=== PATIENT | male | born 1985 | race Two or more races ===

== ENCOUNTER 2018-03-20 22:21 | Inpatient (IN) | payer MEDICAID, OTHER ==
[~2018-03-20] VITALS: Ht 182.9 cm; Wt 88.5 kg
[2018-03-20 22:25] VITALS: BP 136/80
--- NOTE | 2018-03-20 22:40 | Emergency Room Report ---
History of Present Illness General Chief Complaint: Abdominal Pain Source: Patient Present Illness HPI Patient is a 32-year-old male who presented after increased right upper abdominal pain. Patient reports having constant pain for several days. Patient reports having the recently had increased abdominal distention as well as pain. Patient had prior history of similar type symptoms in the past. Prevacid associated with increased vomiting. Patient states that he had onset after eating pizza and had persistent pain since then. He reports having some normal bowel movements. He denies any episodes of diarrhea. He reports having increased dark urine. Allergies: Coded Allergies: No Known Allergies (Unverified , 03/20/18) Patient History Past Medical History: see triage record Reviewed Nursing Documentation: PMH: Agreed; PSxH: Agreed Nursing Documentation-PMH Past Medical History: No Stated History Review of Systems All Other Systems: negative except mentioned in HPI Physical Exam Vital Signs Date Time Temp Pulse Resp B/P (MAP) Pulse Ox O2 Delivery O2 Flow Rate FiO2 03/20/18 22:23 98.2 91 22 136/80 98 Room Air Sp02 EP Interpretation: reviewed, normal General Appearance: normal inspection, well appearing, no apparent distress, alert, GCS 15 Head: atraumatic ENT: normal ENT inspection, hearing grossly normal, normal voice Neck: normal inspection, full range of motion, supple, no bony tend Respiratory: normal inspection, lungs clear, normal breath sounds, no respiratory distress, no retraction, no wheezing Cardiovascular #1: regular rate, rhythm, no edema Gastrointestinal: normal inspection, normal bowel sounds, soft, no guarding, no hernia, tenderness - right upper abdoment Genitourinary: no CVA tenderness Musculoskeletal: normal inspection, back normal, normal range of motion Neurologic: normal inspection, alert, oriented x3, responsive, surgical aides teacher III-XII nml as tested, speech normal Psychiatric: normal inspection, judgement/insight normal, mood/affect normal Skin: normal inspection, normal color, no rash Medical Decision Making Diagnostic Impression: Primary Impression: Abdominal pain Additional Impression: Acute gallstone pancreatitis ER Course Patient presented for abdominal pain. Differential diagnoses included ischemic bowel, appendicitis, perforated viscus, abdominal aortic aneurysm, inferior myocardial infarction, viral gastroenteritis Because of complexity of patient's case laboratory testing and imaging studies were ordered. The patient reports having prior history of gallstones. Abdominal ultrasound was ordered. Patient was noted to have fairly severe pain localized to the right upper quadrant. The laboratory testing showed evidence of pancreatitis as well as a gallbladder inflammation consistent with gallstone pancreatitis.Patient was given IV fluids. The patient given IV pain medications. The patient was advised that he likely would require inpatient management due to gallstone pancreatitis. The patient was noted to have markedly elevated bilirubin levels as well as markedly elevated lipase on laboratory testing. The patient is also noted have elevated white blood count. The gallbladder ultrasound showed the gallbladder stones with some evidence of pancreatic inflammation. The patient likely has choledocholithiasis given his elevated bilirubin levels. The patient does not appear to be suffering from altered mental status. Patient was given IV antibiotics. Dr. Sotero Melgar was contacted for inpatient management due to panel physician. Dr. David was contacted for GI consult.Dr. Zepeda was contacted for surgical consult. Labs Test 03/20/18 22:41 White Blood Count 14.0 K/UL (4.8-10.8) Red Blood Count 6.02 M/UL (4.70-6.10) Hemoglobin 18.0 G/DL (14.2-18.0) Hematocrit 51.3 % (42.0-52.0) Mean Corpuscular Volume 85 FL (80-99) Mean Corpuscular Hemoglobin 30.0 PG (27.0-31.0) Mean Corpuscular Hemoglobin Concent 35.2 G/DL (32.0-36.0) Red Cell Distribution Width 10.5 % (11.6-14.8) Platelet Count 245 K/UL (150-450) Mean Platelet Volume 7.5 FL (6.5-10.1) Neutrophils (%) (Auto) % (45.0-75.0) Lymphocytes (%) (Auto) % (20.0-45.0) Monocytes (%) (Auto) % (1.0-10.0) Eosinophils (%) (Auto) % (0.0-3.0) Basophils (%) (Auto) % (0.0-2.0) Prothrombin Time 11.4 SEC (9.30-11.50) Prothromb Time International Ratio 1.1 (0.9-1.1) Activated Partial Thromboplast Time 27 SEC (23-33) Urine Color Yellow Urine Appearance Clear Urine pH 5 (4.5-8.0) Urine Specific [place] 1.015 (1.005-1.035) Urine Protein 2+ (NEGATIVE) Urine Glucose (UA) Negative (NEGATIVE) Urine Ketones Negative (NEGATIVE) Urine Blood 2+ (NEGATIVE) Urine Nitrite Negative (NEGATIVE) Urine Bilirubin 2+ (NEGATIVE) Urine Ictotest Positive (NEGATIVE) Urine Urobilinogen 4 MG/DL (0.0-1.0) Urine Leukocyte Esterase Negative (NEGATIVE) Urine RBC 2-4 /HPF (0 - 0) Urine WBC 0 /HPF (0 - 0) Urine Squamous Epithelial Cells Few /LPF (NONE/OCC) Urine Bacteria None /HPF (NONE) Sodium Level 139 MMOL/L (136-145) Potassium Level 3.7 MMOL/L (3.5-5.1) Chloride Level 100 MMOL/L (98-107) Carbon Dioxide Level 28 MMOL/L (21-32) Anion Gap 12 mmol/L (5-15) Blood Urea Nitrogen 13 mg/dL (7-18) Creatinine 1.3 MG/DL (0.55-1.30) Estimat Glomerular Filtration Rate > 60 mL/min (>60) Glucose Level 171 MG/DL (74-106) Calcium Level 9.8 MG/DL (8.5-10.1) Total Bilirubin 9.6 MG/DL (0.2-1.0) Direct Bilirubin 7.0 MG/DL (0.0-0.3) Aspartate Amino Transf (AST/SGOT) 448 U/L (15-37) Alanine Aminotransferase (ALT/SGPT) 821 U/L (12-78) Alkaline Phosphatase 152 U/L (46-116) Troponin I 0.000 ng/mL (0.000-0.056) Total Protein 8.9 G/DL (6.4-8.2) Albumin 4.6 G/DL (3.4-5.0) Globulin 4.3 g/dL Albumin/Globulin Ratio 1.1 (1.0-2.7) Lipase > 2000 U/L (73-393) Last Vital Signs Date Time Temp Pulse Resp B/P (MAP) Pulse Ox O2 Delivery O2 Flow Rate FiO2 03/20/18 22:23 98.2 91 22 136/80 98 Room Air Status: unchanged Disposition: ADMITTED INPATIENT Condition: Stable Scripts No Active Prescriptions or Reported Meds Referrals: [facility] (PCP) Alban Martinez MD Mar 20, 2018 22:40
[2018-03-20] MEDS ORDERED: Morphine Sulfate 4mg/ml Inj (IV/IM USE ONLY) IVP ONE (22:45)
[2018-03-20] MEDS ORDERED: Sodium Chloride 500ML 500 ML IV ONE (22:45)
[2018-03-20 23:02] LABS: HEMATOCRIT 51.3 % (42.0-52.0); MEAN CORPUSCULAR VOLUME 85 FL (80-99); PLATELET COUNT 245 K/UL (150-450); RED BLOOD COUNT 6.02 M/UL (4.70-6.10); RED CELL DISTRIBUTION WIDTH 10.5 % (11.6-14.8)
[2018-03-20 23:10] LABS: ANION GAP 12 mmol/L (5-15); BLOOD UREA NITROGEN 13 mg/dL (7-18); CALCIUM 9.8 MG/DL (8.5-10.1); CARBON DIOXIDE 28 MMOL/L (21-32); CHLORIDE 100 MMOL/L (98-107); CREATININE 1.3 MG/DL (0.55-1.30); POTASSIUM 3.7 MMOL/L (3.5-5.1); SODIUM 139 MMOL/L (136-145)
[2018-03-20 23:13] LABS: APPEARANCE,URINE CLEAR; BILIRUBIN, URINE 2+ (NEGATIVE); GLUCOSE, URINE (UA) NEGATIVE (NEGATIVE); KETONES,URINE NEGATIVE (NEGATIVE); LEUKOCYTE ESTERASE ,URINE NEGATIVE (NEGATIVE); NITRITE,URINE NEGATIVE (NEGATIVE); PH,URINE 5 (4.5-8.0); PROTEIN,URINE 2+ (NEGATIVE); UROBILINOGEN,URINE 4 MG/DL (0.0-1.0)
[2018-03-20 23:15] LABS: COLOR,URINE YELLOW
[2018-03-20 23:19] LABS: INR 1.1 (0.9-1.1)
[2018-03-20 23:20] LABS: ALANINE AMINOTRANSFERASE 821 U/L (12-78); ALBUMIN 4.6 G/DL (3.4-5.0); ALBUMIN/GLOBULIN RATIO 1.1 (1.0-2.7); ALKALINE PHOSPHATASE 152 U/L (46-116); ASPARTATE AMINO TRANSFERASE 448 U/L (15-37); BILIRUBIN,TOTAL 9.6 MG/DL (0.2-1.0)
[2018-03-21] MEDS ORDERED: Morphine Sulfate 4mg/ml Inj (IV/IM USE ONLY) IVP ONE ×2 (00:30→01:30)
[2018-03-21] MEDS ORDERED: Ampicillin/Sulbactam Sod 3 GM in NS 110 ML IVPB ONE (01:00)
[2018-03-21 04:00] VITALS: BP 115/69
[2018-03-21] MEDS ORDERED: D5NS 1,000 ML IV SCH (04:45)
[2018-03-21] MEDS: Morphine Sulfate 4mg/ml Inj (IV/IM USE ONLY) IVP PRN ×5 (04:58→21:30)
[2018-03-21] MEDS: Piperacillin/Tazobactam 3.375 GM in D5W 110 ML IVPB SCH ×3 (05:45→21:19)
[2018-03-21 08:00] VITALS: BP 123/66
[2018-03-21] MEDS: Heparin 5000 units/ml inj SUBQ SCH ×2 (09:00→21:21)
--- NOTE | 2018-03-21 09:16 | Diagnostic Imaging Report ---
Indication:Abdominal pain. Elevated bilirubin Technique: Grayscale and duplex Doppler imaging of the abdomen performed. Comparison: None Findings: The gallbladder is visualized. There are multiple gallstones. There is one image of the CBD which appears normal in caliber measuring 4 mm. However study is very limited. Spleen is seen only partially and appears normal in size. There is no obvious free fluid. There is no obvious hydronephrosis. Aorta and pancreas are not seen. IMPRESSION: Very limited evaluation. Cholelithiasis demonstrated. Consider a different imaging modalities such as CT or MRCP for further evaluation of hyperbilirubinemia as clinically warranted. Findings discussed with Dr. Sotero Melgar.
[2018-03-21] MEDS: Pantoprazole Inj IVP SCH (09:52)
[2018-03-21 09:54] LABS: HEMATOCRIT 51.1 % (42.0-52.0); HEMOGLOBIN 17.8 G/DL (14.2-18.0); MEAN CORPUSCULAR VOLUME 86 FL (80-99); PLATELET COUNT 222 K/UL (150-450); RED BLOOD COUNT 5.93 M/UL (4.70-6.10); RED CELL DISTRIBUTION WIDTH 10.7 % (11.6-14.8); WHITE BLOOD COUNT 10.2 K/UL (4.8-10.8)
[2018-03-21 10:25] LABS: ALANINE AMINOTRANSFERASE 704 U/L (12-78); ALBUMIN 3.8 G/DL (3.4-5.0); ALBUMIN/GLOBULIN RATIO 1.1 (1.0-2.7); ALKALINE PHOSPHATASE 142 U/L (46-116); ANION GAP 7 mmol/L (5-15); ASPARTATE AMINO TRANSFERASE 327 U/L (15-37); BILIRUBIN,TOTAL 7.7 MG/DL (0.2-1.0); BLOOD UREA NITROGEN 10 mg/dL (7-18); CARBON DIOXIDE 30 MMOL/L (21-32); CHLORIDE 104 MMOL/L (98-107); CREATININE 1.2 MG/DL (0.55-1.30); POTASSIUM 3.9 MMOL/L (3.5-5.1); SODIUM 141 MMOL/L (136-145)
[2018-03-21 10:26] LABS: BILIRUBIN,DIRECT 5.8 MG/DL (0.0-0.3)
[2018-03-21 12:00] VITALS: BP 127/64
--- NOTE | 2018-03-21 12:13 | GI Initial Consult Note ---
History of Present Illness General Date patient seen: Mar 21, 2018 Time patient seen: 12:06 Reason for Hospitalization: Abdominal Pain Referring physician: LU MCKEON Reason for Consultation: GALLSTONE PANCREATITIS Present Illness HPI Patient is a 32-year-old male who presented after increased right upper abdominal pain. Patient reports having constant pain for several days. Patient reports having the recently had increased abdominal distention as well as pain. Patient had prior history of similar type symptoms in the past. Prevacid associated with increased vomiting. Patient states that he had onset after eating pizza and had persistent pain since then. He reports having some normal bowel movements. He denies any episodes of diarrhea. He reports having increased dark urine. GI consulted for gallstone pancreatitis. Pt seen, presents with RUQ abdominal pain. Labs reviewed noted with elevated LFTs and lipase levels suggestive of gallstone pancreatitis. Initially presented with leukocytosis, now normal. MRCP performed, pending results. Patient has no known medical history. No history of endoscopy / colonoscopy. Home Meds No Active Prescriptions or Reported Meds Med list reviewed/reconciled: Yes Allergies: Coded Allergies: No Known Allergies (Unverified , 03/20/18) Patient History History Provided By: Patient, Medical Record [facility] Narrative Past Medical History: No Stated History Social History: Denies: smoking, alcohol use, drug use, other Review of Systems All Other Systems: negative except mentioned in HPI Physical Exam Vital Signs Date Time Temp Pulse Resp B/P (MAP) Pulse Ox O2 Delivery O2 Flow Rate FiO2 03/20/18 22:23 98.2 91 22 136/80 98 Room Air Sp02 EP Interpretation: reviewed, normal Labs Laboratory Tests Test 03/20/18 22:41 03/21/18 09:25 White Blood Count 14.0 K/UL (4.8-10.8) H 10.2 K/UL (4.8-10.8) Red Blood Count 6.02 M/UL (4.70-6.10) 5.93 M/UL (4.70-6.10) Hemoglobin 18.0 G/DL (14.2-18.0) 17.8 G/DL (14.2-18.0) Hematocrit 51.3 % (42.0-52.0) 51.1 % (42.0-52.0) Mean Corpuscular Volume 85 FL (80-99) 86 FL (80-99) Mean Corpuscular Hemoglobin 30.0 PG (27.0-31.0) 30.0 PG (27.0-31.0) Mean Corpuscular Hemoglobin Concent 35.2 G/DL (32.0-36.0) 34.8 G/DL (32.0-36.0) Red Cell Distribution Width 10.5 % (11.6-14.8) L 10.7 % (11.6-14.8) L Platelet Count 245 K/UL (150-450) 222 K/UL (150-450) Mean Platelet Volume 7.5 FL (6.5-10.1) 7.5 FL (6.5-10.1) Neutrophils (%) (Auto) % (45.0-75.0) % (45.0-75.0) Lymphocytes (%) (Auto) % (20.0-45.0) % (20.0-45.0) Monocytes (%) (Auto) % (1.0-10.0) % (1.0-10.0) Eosinophils (%) (Auto) % (0.0-3.0) % (0.0-3.0) Basophils (%) (Auto) % (0.0-2.0) % (0.0-2.0) Prothrombin Time 11.4 SEC (9.30-11.50) Prothromb Time International Ratio 1.1 (0.9-1.1) Activated Partial Thromboplast Time 27 SEC (23-33) Urine Color Yellow Urine Appearance Clear Urine pH 5 (4.5-8.0) Urine Specific [place] 1.015 (1.005-1.035) Urine Protein 2+ (NEGATIVE) H Urine Glucose (UA) Negative (NEGATIVE) Urine Ketones Negative (NEGATIVE) Urine Blood 2+ (NEGATIVE) H Urine Nitrite Negative (NEGATIVE) Urine Bilirubin 2+ (NEGATIVE) H Urine Ictotest Positive (NEGATIVE) Urine Urobilinogen 4 MG/DL (0.0-1.0) H Urine Leukocyte Esterase Negative (NEGATIVE) Urine RBC 2-4 /HPF (0 - 0) H Urine WBC 0 /HPF (0 - 0) Urine Squamous Epithelial Cells Few /LPF (NONE/OCC) Urine Bacteria None /HPF (NONE) Sodium Level 139 MMOL/L (136-145) 141 MMOL/L (136-145) Potassium Level 3.7 MMOL/L (3.5-5.1) 3.9 MMOL/L (3.5-5.1) Chloride Level 100 MMOL/L (98-107) 104 MMOL/L (98-107) Carbon Dioxide Level 28 MMOL/L (21-32) 30 MMOL/L (21-32) Anion Gap 12 mmol/L (5-15) 7 mmol/L (5-15) Blood Urea Nitrogen 13 mg/dL (7-18) 10 mg/dL (7-18) Creatinine 1.3 MG/DL (0.55-1.30) 1.2 MG/DL (0.55-1.30) Estimat Glomerular Filtration Rate > 60 mL/min (>60) > 60 mL/min (>60) Glucose Level 171 MG/DL (74-106) H 129 MG/DL (74-106) H Calcium Level 9.8 MG/DL (8.5-10.1) 9.0 MG/DL (8.5-10.1) Total Bilirubin 9.6 MG/DL (0.2-1.0) H 7.7 MG/DL (0.2-1.0) H Direct Bilirubin 7.0 MG/DL (0.0-0.3) H 5.8 MG/DL (0.0-0.3) H Aspartate Amino Transf (AST/SGOT) 448 U/L (15-37) H 327 U/L (15-37) H Alanine Aminotransferase (ALT/SGPT) 821 U/L (12-78) H 704 U/L (12-78) H Alkaline Phosphatase 152 U/L (46-116) H 142 U/L (46-116) H Troponin I 0.000 ng/mL (0.000-0.056) Total Protein 8.9 G/DL (6.4-8.2) H 7.4 G/DL (6.4-8.2) Albumin 4.6 G/DL (3.4-5.0) 3.8 G/DL (3.4-5.0) Globulin 4.3 g/dL 3.6 g/dL Albumin/Globulin Ratio 1.1 (1.0-2.7) 1.1 (1.0-2.7) Lipase > 2000 U/L (73-393) H Differential Total Cells Counted 100 Neutrophils % (Manual) 91 % (45-75) H Lymphocytes % (Manual) 4 % (20-45) L Monocytes % (Manual) 5 % (1-10) Eosinophils % (Manual) 0 % (0-3) Basophils % (Manual) 0 % (0-2) Band Neutrophils 0 % (0-8) Platelet Estimate Adequate Platelet Morphology Normal Red Blood Cell Morphology Normal General Appearance: well appearing, no apparent distress, alert Head: normocephalic EENT: PERRL/EOMI, normal ENT inspection Neck: supple Respiratory: normal breath sounds, no respiratory distress Cardiovascular: normal rate Gastrointestinal: normal inspection, non tender, soft, normal bowel sounds, non -distended Rectal: deferred Genitourinary: deferred Musculoskeletal: normal inspection, back normal Neurologic: normal inspection, alert, oriented x3, responsive Psychiatric: normal inspection, judgement/insight normal, memory normal Skin: normal inspection, normal color, no rash, warm/dry, palpation normal, well hydrated Lymphatic: normal inspection, no adenopathy Current Medications Current Medications Medications (Trade) Dose Ordered Sig/Mainor Route PRN Reason Start Time Stop Time Status Last Admin Dose Admin Dextrose/Sodium Chloride 1,000 ml @ 125 mls/hr Q8H IV 03/21/18 04:45 04/20/18 04:44 03/21/18 04:57 Heparin Sodium (Porcine) (Heparin 5000 units/ml) 5,000 units EVERY 12 HOURS SUBQ 03/21/18 09:00 04/20/18 08:59 Morphine Sulfate (Morphine Sulfate) 4 mg Q3H PRN IVP Severe Pain (Pain Scale 7-10) 03/21/18 04:45 03/28/18 04:44 03/21/18 09:53 Ondansetron HCl (Zofran) 4 mg Q4H PRN IVP Nausea & Vomiting 03/21/18 04:45 04/20/18 04:44 Pantoprazole (Protonix) 40 mg DAILY IVP 03/21/18 09:00 04/20/18 08:59 03/21/18 09:52 Piperacillin Sod/ Tazobactam Sod 3.375 gm/Dextrose 110 ml @ 27.5 mls/hr EVERY 8 HOURS IVPB 03/21/18 06:00 03/26/18 05:59 03/21/18 05:45 GI: Plan Problems: (1) Acute gallstone pancreatitis (2) Abdominal pain Plan MRCP resulted >> no gallstones noted defer ERCP at this time maintain NPO + aggressive hydration x 24 hours. pain mgmt d/w POC with patient family follow up labs tomorrow may need cholecystomy Discussed with Dr. Daivd. Thank you for this patient referral, we will follow. The patient was seen and examined at bedside and all new and available data was reviewed in the patients chart. I agree with the above findings, impression and plan. (Patient seen earlier today. Signature stamp does not reflect patient encounter time.). - MD Aiyana GeePhoenix Children'[facility] HospitalRach[facility] [employer] Mar 21, 2018 12:13
--- NOTE | 2018-03-21 12:16 | Diagnostic Imaging Report ---
Indication: Abdominal pain. Abnormal liver function tests Technique: MRI of the abdomen was performed in a 1.5 Carole magnet. Pulse sequences obtained include coronal and axial T2 single shot fast spin echo breathhold and respiratory gated coronal T2 3-D M.R.C.P.; this data set was displayed in different projections or MIPs. In addition, multiple coronal oblique thin T2 weighted, fat saturated SE sequences obtained through the CBD. Comparison: None Findings: There is mild intrahepatic biliary ductal dilatation. The CBD is about 6 to 7 mm which is normal. There is no evidence of choledocholithiasis. Gallstone is present. There is thickening of the wall the gallbladder noted. Correlate for cholecystitis. There is generalized prominence of the pancreas which appears enlarged. In addition there is peripancreatic T2 hyperintense fluid tracking along the paracolic gutters bilaterally in the retroperitoneum extending into the pelvis. Findings are consistent with acute pancreatitis. There is a trace bilateral pleural fluid present. The spleen is normal in size. No abnormalities of the visualized liver identified. IMPRESSION: No evidence of choledocholithiasis. Mild biliary ductal dilatation is noted. Acute pancreatitis with the enlarged appearance of the pancreas and peripancreatic/retroperitoneal fluid and inflammation. Gallstone with gallbladder wall thickening. Cholecystitis not excluded. Correlate clinically. Trace bilateral pleural effusions. Findings reviewed and discussed with Dr. David.
[2018-03-21] MEDS: D5NS 1,000 ML IV SCH ×2 (15:00→19:10)
[2018-03-21 16:00] VITALS: BP 143/92
--- NOTE | 2018-03-21 16:30 | History and Physical Report ---
DATE OF ADMISSION: 03/21/2018 CHIEF COMPLAINT: Pancreatitis. HISTORY OF PRESENT ILLNESS: The patient is a 32-year-old male. He has a questionable history of gallstones and presented with complaints of abdominal pain starting 2 to 3 days prior to admission. The patient has had similar episodes of abdominal pain but they only lasts several hours. They do occur when he has a fatty meal. On this occasion, the pain was severe. He presented to the emergency room. On evaluation there, his vital signs were stable. Laboratories were significant for a lipase of greater than 2000, total bilirubin of 2.6, direct bilirubin of 7, AST of 448, ALT of 821. The patient was given pain medications. CT scan of the abdomen was done but there were no results back. He is now admitted for acute pancreatitis. PAST MEDICAL HISTORY: None. PAST SURGICAL HISTORY: None. CURRENT MEDICATIONS: None. FAMILY HISTORY: Significant for gallstones. SOCIAL HISTORY: Negative for tobacco or drugs. The patient usually usually some alcohol during Shabbat but that about only once a week. REVIEW OF SYSTEMS: Negative except for abdominal pain. PHYSICAL EXAMINATION: VITAL SIGNS: Temperature 99.7, pulse 83, respirations 20, and blood pressure 123/65. GENERAL: The patient is well developed, no apparent distress. HEART: Regular rate and rhythm. LUNGS: Clear. ABDOMEN: Soft. Diffusely tender with some guarding. There is no rebound noted. LABORATORY DATA: White count 14. Lipase is greater than 2000. AST 448 and ALT 821. Total bilirubin of 9.6. UA was clear. ASSESSMENT: This is a pleasant 32-year-old male now admitted with complaints of severe pancreatitis secondary to gallstones. 1. Severe pancreatitis. 2. History of gallstones. PLAN: 1. IV hydration, NPO, IV pain medications. 2. Antibiotics. 3. Followup CAT scan. 4. GI consultation. 5. Plan and care was discussed with the patient at length at bedside. Sotero Melgar M.D. DR: Rahul JOB#: [id number] CC:
[2018-03-21 20:00] VITALS: BP 109/67
--- NOTE | 2018-03-21 21:12 | Consultation ---
History of Present Illness General Date patient seen: Mar 21, 2018 Chief Complaint: Abdominal Pain Referring physician: UL MCKEON Reason for Consultation: GALLSTONE PANCREATITIS Present Illness HPI 32 year old otherwise healthy male presented to ED with complaints of worsening abdominal pain. States that last week had some intermittent RUQ discomfort with meals but 2-3 days ago had fatty meal and since has been having worsening RUQ/epigastric pain with radiation to back. came to ED for evaluation. In ED noted to have pancreatitis likely secondary to cholelithiasis. Surgery called to evaluate. patient seen, chart reviewed, patient examined. currently still in pain but improving. Allergies: Coded Allergies: No Known Allergies (Unverified , 03/20/18) Medication History No Active Prescriptions or Reported Meds Patient History History Provided By: Patient, Medical Record, PMD Healthcare decision maker Resuscitation status Full Code Advanced Directive on File Past Medical/Surgical History Past Medical/Surgical History: (1) Abdominal pain (2) Acute gallstone pancreatitis Review of Systems All Other Systems: negative except mentioned in HPI Physical Exam General Appearance: alert, mild distress Lines, tubes and drains: peripheral HEENT: atraumatic, anicteric Neck: supple, normal inspection Respiratory/Chest: lungs clear, normal breath sounds, no respiratory distress Cardiovascular/Chest: normal rate Abdomen: soft, no organomegaly, no mass, distended, tender Extremities: normal inspection Skin Exam: warm/dry Neurologic: alert, oriented x 3 Last 24 Hour Vital Signs Date Time Temp Pulse Resp B/P (MAP) Pulse Ox O2 Delivery O2 Flow Rate FiO2 03/21/18 17:02 99.6 03/21/18 16:00 99.6 103 19 143/92 (109) 99 03/21/18 12:00 100.2 80 20 127/64 (85) 98 03/21/18 09:00 Room Air 03/21/18 08:00 99.7 82 20 123/66 (85) 100 03/21/18 04:00 98.2 81 19 115/69 (84) 98 03/21/18 02:54 Room Air 03/21/18 02:30 98.0 90 18 115/75 99 Room Air 03/20/18 22:25 91 22 Room Air 03/20/18 22:25 98.2 76 22 136/80 98 Room Air 03/20/18 22:23 98.2 91 22 136/80 98 Room Air Intake and Output 03/20/18 03/21/18 18:59 06:59 Intake Total 1735 ml Balance 1735 ml Intake Oral 0 ml IV Total 1735 ml Laboratory Tests Test 03/20/18 22:41 03/21/18 09:25 White Blood Count 14.0 K/UL (4.8-10.8) H 10.2 K/UL (4.8-10.8) Red Blood Count 6.02 M/UL (4.70-6.10) 5.93 M/UL (4.70-6.10) Hemoglobin 18.0 G/DL (14.2-18.0) 17.8 G/DL (14.2-18.0) Hematocrit 51.3 % (42.0-52.0) 51.1 % (42.0-52.0) Mean Corpuscular Volume 85 FL (80-99) 86 FL (80-99) Mean Corpuscular Hemoglobin 30.0 PG (27.0-31.0) 30.0 PG (27.0-31.0) Mean Corpuscular Hemoglobin Concent 35.2 G/DL (32.0-36.0) 34.8 G/DL (32.0-36.0) Red Cell Distribution Width 10.5 % (11.6-14.8) L 10.7 % (11.6-14.8) L Platelet Count 245 K/UL (150-450) 222 K/UL (150-450) Mean Platelet Volume 7.5 FL (6.5-10.1) 7.5 FL (6.5-10.1) Neutrophils (%) (Auto) % (45.0-75.0) % (45.0-75.0) Lymphocytes (%) (Auto) % (20.0-45.0) % (20.0-45.0) Monocytes (%) (Auto) % (1.0-10.0) % (1.0-10.0) Eosinophils (%) (Auto) % (0.0-3.0) % (0.0-3.0) Basophils (%) (Auto) % (0.0-2.0) % (0.0-2.0) Prothrombin Time 11.4 SEC (9.30-11.50) Prothromb Time International Ratio 1.1 (0.9-1.1) Activated Partial Thromboplast Time 27 SEC (23-33) Urine Color Yellow Urine Appearance Clear Urine pH 5 (4.5-8.0) Urine Specific [place] 1.015 (1.005-1.035) Urine Protein 2+ (NEGATIVE) H Urine Glucose (UA) Negative (NEGATIVE) Urine Ketones Negative (NEGATIVE) Urine Blood 2+ (NEGATIVE) H Urine Nitrite Negative (NEGATIVE) Urine Bilirubin 2+ (NEGATIVE) H Urine Ictotest Positive (NEGATIVE) Urine Urobilinogen 4 MG/DL (0.0-1.0) H Urine Leukocyte Esterase Negative (NEGATIVE) Urine RBC 2-4 /HPF (0 - 0) H Urine WBC 0 /HPF (0 - 0) Urine Squamous Epithelial Cells Few /LPF (NONE/OCC) Urine Bacteria None /HPF (NONE) Sodium Level 139 MMOL/L (136-145) 141 MMOL/L (136-145) Potassium Level 3.7 MMOL/L (3.5-5.1) 3.9 MMOL/L (3.5-5.1) Chloride Level 100 MMOL/L (98-107) 104 MMOL/L (98-107) Carbon Dioxide Level 28 MMOL/L (21-32) 30 MMOL/L (21-32) Anion Gap 12 mmol/L (5-15) 7 mmol/L (5-15) Blood Urea Nitrogen 13 mg/dL (7-18) 10 mg/dL (7-18) Creatinine 1.3 MG/DL (0.55-1.30) 1.2 MG/DL (0.55-1.30) Estimat Glomerular Filtration Rate > 60 mL/min (>60) > 60 mL/min (>60) Glucose Level 171 MG/DL (74-106) H 129 MG/DL (74-106) H Calcium Level 9.8 MG/DL (8.5-10.1) 9.0 MG/DL (8.5-10.1) Total Bilirubin 9.6 MG/DL (0.2-1.0) H 7.7 MG/DL (0.2-1.0) H Direct Bilirubin 7.0 MG/DL (0.0-0.3) H 5.8 MG/DL (0.0-0.3) H Aspartate Amino Transf (AST/SGOT) 448 U/L (15-37) H 327 U/L (15-37) H Alanine Aminotransferase (ALT/SGPT) 821 U/L (12-78) H 704 U/L (12-78) H Alkaline Phosphatase 152 U/L (46-116) H 142 U/L (46-116) H Troponin I 0.000 ng/mL (0.000-0.056) Total Protein 8.9 G/DL (6.4-8.2) H 7.4 G/DL (6.4-8.2) Albumin 4.6 G/DL (3.4-5.0) 3.8 G/DL (3.4-5.0) Globulin 4.3 g/dL 3.6 g/dL Albumin/Globulin Ratio 1.1 (1.0-2.7) 1.1 (1.0-2.7) Lipase > 2000 U/L (73-393) H Differential Total Cells Counted 100 Neutrophils % (Manual) 91 % (45-75) H Lymphocytes % (Manual) 4 % (20-45) L Monocytes % (Manual) 5 % (1-10) Eosinophils % (Manual) 0 % (0-3) Basophils % (Manual) 0 % (0-2) Band Neutrophils 0 % (0-8) Platelet Estimate Adequate Platelet Morphology Normal Red Blood Cell Morphology Normal Height (Feet): 6 Height (Inches): 0.00 Weight (Pounds): 195 Medications Current Medications Medications (Trade) Dose Ordered Sig/Mainor Route PRN Reason Start Time Stop Time Status Last Admin Dose Admin Dextrose/Sodium Chloride 1,000 ml @ 150 mls/hr Q6H40M IV 03/21/18 12:30 03/22/18 12:29 03/21/18 15:00 Heparin Sodium (Porcine) (Heparin 5000 units/ml) 5,000 units EVERY 12 HOURS SUBQ 03/21/18 09:00 04/20/18 08:59 Morphine Sulfate (Morphine Sulfate) 4 mg Q3H PRN IVP Severe Pain (Pain Scale 7-10) 03/21/18 04:45 03/28/18 04:44 03/21/18 16:32 Ondansetron HCl (Zofran) 4 mg Q4H PRN IVP Nausea & Vomiting 03/21/18 04:45 04/20/18 04:44 Pantoprazole (Protonix) 40 mg DAILY IVP 03/21/18 09:00 04/20/18 08:59 03/21/18 09:52 Piperacillin Sod/ Tazobactam Sod 3.375 gm/Dextrose 110 ml @ 27.5 mls/hr EVERY 8 HOURS IVPB 03/21/18 06:00 03/26/18 05:59 03/21/18 15:00 Assessment/Plan Problem List: (1) Acute gallstone pancreatitis Assessment & Plan: 32M gallstone pancreatitis low grade fevers leukocytosis -resolved significantly elevated LFT's/bili - trending down US with cholelithiasis MRI w/ No evidence of choledocholithiasis. Mild biliary ductal dilatation is noted. Acute pancreatitis with the enlarged appearance of the pancreas and peripancreatic/retroperitoneal fluid and inflammation. Gallstone with gallbladder wall thickening. Cholecystitis not excluded. Correlate clinically. likely passage of stone since onset. does have significant pancreatitis on MRI and exam with persistent tenderness NPO IV fluids trend labs appreciate GI input medical management of acute pancreatitis for now will likely need cholecystectomy at some point thank you. will follow with recs. ICD Codes: K85.10 - Biliary acute pancreatitis without necrosis or infection SNOMED: 684647927 Status: stable LuisdevonHardik Mar 21, 2018 21:12
[2018-03-22] VITALS: BP 118/76
[2018-03-22] MEDS: Morphine Sulfate 4mg/ml Inj (IV/IM USE ONLY) IVP PRN ×2 (00:36→05:28)
[2018-03-22] MEDS: D5NS 1,000 ML IV SCH ×2 (01:50→08:11)
[2018-03-22 04:00] VITALS: BP 127/77
[2018-03-22] MEDS: Piperacillin/Tazobactam 3.375 GM in D5W 110 ML IVPB SCH ×3 (05:28→21:42)
[2018-03-22 06:49] LABS: BASOPHILS % (AUTO) 0.7 % (0.0-2.0); EOSINOPHILS % (AUTO) 0.4 % (0.0-3.0); HEMATOCRIT 47.7 % (42.0-52.0); HEMOGLOBIN 16.5 G/DL (14.2-18.0); LYMPHOCYTES % (AUTO) 8.5 % (20.0-45.0); MEAN CORPUSCULAR VOLUME 87 FL (80-99); MONOCYTES % (AUTO) 6.9 % (1.0-10.0); NEUTROPHILS % (AUTO) 83.5 % (45.0-75.0); PLATELET COUNT 206 K/UL (150-450); RED BLOOD COUNT 5.49 M/UL (4.70-6.10); RED CELL DISTRIBUTION WIDTH 10.8 % (11.6-14.8); WHITE BLOOD COUNT 10.1 K/UL (4.8-10.8)
[2018-03-22 07:13] LABS: ALANINE AMINOTRANSFERASE 435 U/L (12-78); ALBUMIN 3.3 G/DL (3.4-5.0); ALBUMIN/GLOBULIN RATIO 0.9 (1.0-2.7); ALKALINE PHOSPHATASE 135 U/L (46-116); ANION GAP 7 mmol/L (5-15); ASPARTATE AMINO TRANSFERASE 116 U/L (15-37); BLOOD UREA NITROGEN 11 mg/dL (7-18); CALCIUM 8.7 MG/DL (8.5-10.1); CARBON DIOXIDE 29 MMOL/L (21-32); CHLORIDE 105 MMOL/L (98-107); CREATININE 1.1 MG/DL (0.55-1.30); POTASSIUM 3.7 MMOL/L (3.5-5.1); SODIUM 141 MMOL/L (136-145)
[2018-03-22 07:14] LABS: BILIRUBIN,DIRECT 1.3 MG/DL (0.0-0.3)
[2018-03-22 08:00] VITALS: BP 120/60
[2018-03-22] MEDS: Pantoprazole Inj IVP SCH (08:09)
[2018-03-22] MEDS: Heparin 5000 units/ml inj SUBQ SCH ×2 (08:10→21:44)
[2018-03-22 12:00] VITALS: BP 115/73
--- NOTE | 2018-03-22 12:33 | GI Progress Note ---
Assessment/Plan Problems: (1) Abdominal pain ICD Codes: R10.9 - Unspecified abdominal pain SNOMED: 93923130 (2) Acute gallstone pancreatitis ICD Codes: K85.10 - Biliary acute pancreatitis without necrosis or infection SNOMED: 731910912 Status: progressing Status Narrative Discussed with Dr. David. Assessment/Plan MRCP resulted >> no gallstones noted, most likely have passed LFTs elevated, but downtrending defer ERCP at this time maintain NPO + aggressive hydration x 24 hours. fu surgical recommendations for possible brandon pain mgmt d/w POC with patient family fu labs The patient was seen and examined at bedside and all new and available data was reviewed in the patients chart. I agree with the above findings, impression and plan. (Patient seen earlier today. Signature stamp does not reflect patient encounter time.). - Mike David MD Subjective Subjective severe abdominal pain Objective Last 24 Hour Vital Signs Date Time Temp Pulse Resp B/P (MAP) Pulse Ox O2 Delivery O2 Flow Rate FiO2 03/22/18 09:00 Room Air 03/22/18 08:00 98.9 95 18 120/60 (80) 96 03/22/18 04:00 100.2 92 19 127/77 (94) 96 03/22/18 00:00 99.4 91 19 118/76 (90) 99 03/21/18 21:00 Room Air 03/21/18 20:00 99.7 87 19 109/67 (81) 99 03/21/18 17:02 99.6 03/21/18 16:00 99.6 103 19 143/92 (109) 99 Intake and Output 03/21/18 03/22/18 19:00 07:00 Intake Total 837.5 ml 1650 ml Output Total 400 ml Balance 837.5 ml 1250 ml IV Total 837.5 ml 1650 ml Output Urine Total 400 ml # Voids 2 2 Laboratory Tests Test 03/22/18 05:53 White Blood Count 10.1 K/UL (4.8-10.8) Red Blood Count 5.49 M/UL (4.70-6.10) Hemoglobin 16.5 G/DL (14.2-18.0) Hematocrit 47.7 % (42.0-52.0) Mean Corpuscular Volume 87 FL (80-99) Mean Corpuscular Hemoglobin 30.1 PG (27.0-31.0) Mean Corpuscular Hemoglobin Concent 34.7 G/DL (32.0-36.0) Red Cell Distribution Width 10.8 % (11.6-14.8) L Platelet Count 206 K/UL (150-450) Mean Platelet Volume 7.7 FL (6.5-10.1) Neutrophils (%) (Auto) 83.5 % (45.0-75.0) H Lymphocytes (%) (Auto) 8.5 % (20.0-45.0) L Monocytes (%) (Auto) 6.9 % (1.0-10.0) Eosinophils (%) (Auto) 0.4 % (0.0-3.0) Basophils (%) (Auto) 0.7 % (0.0-2.0) Sodium Level 141 MMOL/L (136-145) Potassium Level 3.7 MMOL/L (3.5-5.1) Chloride Level 105 MMOL/L (98-107) Carbon Dioxide Level 29 MMOL/L (21-32) Anion Gap 7 mmol/L (5-15) Blood Urea Nitrogen 11 mg/dL (7-18) Creatinine 1.1 MG/DL (0.55-1.30) Estimat Glomerular Filtration Rate > 60 mL/min (>60) Glucose Level 109 MG/DL (74-106) H Calcium Level 8.7 MG/DL (8.5-10.1) Total Bilirubin 3.0 MG/DL (0.2-1.0) H Direct Bilirubin 1.3 MG/DL (0.0-0.3) H Aspartate Amino Transf (AST/SGOT) 116 U/L (15-37) H Alanine Aminotransferase (ALT/SGPT) 435 U/L (12-78) H Alkaline Phosphatase 135 U/L (46-116) H Total Protein 7.0 G/DL (6.4-8.2) Albumin 3.3 G/DL (3.4-5.0) L Globulin 3.7 g/dL Albumin/Globulin Ratio 0.9 (1.0-2.7) L Lipase > 2000 U/L (73-393) H Height (Feet): 6 Height (Inches): 0.00 Weight (Pounds): 195 General Appearance: WD/WN, no apparent distress, alert Cardiovascular: normal rate Respiratory/Chest: normal breath sounds, no respiratory distress Abdominal Exam: normal bowel sounds, non tender, soft Extremities: normal range of motion, non-tender Saran Bronson NP Mar 22, 2018 12:33
[2018-03-22] MEDS ORDERED: D5 1/2NS 1,000 ML IV SCH (13:00)
--- NOTE | 2018-03-22 15:59 | General Surgery Progress Note ---
General Surgery-Progress Note Subjective Additional Comments leukocytosis resolved. labs improving. lipase still elevated Objective Last 24 Hour Vital Signs Date Time Temp Pulse Resp B/P (MAP) Pulse Ox O2 Delivery O2 Flow Rate FiO2 03/22/18 12:00 99.8 88 18 115/73 (87) 98 88 03/22/18 09:00 Room Air 03/22/18 08:00 98.9 95 18 120/60 (80) 96 03/22/18 04:00 100.2 92 19 127/77 (94) 96 03/22/18 00:00 99.4 91 19 118/76 (90) 99 03/21/18 21:00 Room Air 03/21/18 20:00 99.7 87 19 109/67 (81) 99 03/21/18 17:02 99.6 03/21/18 16:00 99.6 103 19 143/92 (109) 99 I&O Intake and Output 03/21/18 03/22/18 19:00 07:00 Intake Total 837.5 ml 1650 ml Output Total 400 ml Balance 837.5 ml 1250 ml IV Total 837.5 ml 1650 ml Output Urine Total 400 ml # Voids 2 2 Cardiovascular: RSR Respiratory: clear Abdomen: soft, distended, tenderness, present bowel sounds Extremities: no tenderness, no cyanosis Laboratory Tests Test 03/22/18 05:53 White Blood Count 10.1 K/UL (4.8-10.8) Red Blood Count 5.49 M/UL (4.70-6.10) Hemoglobin 16.5 G/DL (14.2-18.0) Hematocrit 47.7 % (42.0-52.0) Mean Corpuscular Volume 87 FL (80-99) Mean Corpuscular Hemoglobin 30.1 PG (27.0-31.0) Mean Corpuscular Hemoglobin Concent 34.7 G/DL (32.0-36.0) Red Cell Distribution Width 10.8 % (11.6-14.8) L Platelet Count 206 K/UL (150-450) Mean Platelet Volume 7.7 FL (6.5-10.1) Neutrophils (%) (Auto) 83.5 % (45.0-75.0) H Lymphocytes (%) (Auto) 8.5 % (20.0-45.0) L Monocytes (%) (Auto) 6.9 % (1.0-10.0) Eosinophils (%) (Auto) 0.4 % (0.0-3.0) Basophils (%) (Auto) 0.7 % (0.0-2.0) Sodium Level 141 MMOL/L (136-145) Potassium Level 3.7 MMOL/L (3.5-5.1) Chloride Level 105 MMOL/L (98-107) Carbon Dioxide Level 29 MMOL/L (21-32) Anion Gap 7 mmol/L (5-15) Blood Urea Nitrogen 11 mg/dL (7-18) Creatinine 1.1 MG/DL (0.55-1.30) Estimat Glomerular Filtration Rate > 60 mL/min (>60) Glucose Level 109 MG/DL (74-106) H Calcium Level 8.7 MG/DL (8.5-10.1) Total Bilirubin 3.0 MG/DL (0.2-1.0) H Direct Bilirubin 1.3 MG/DL (0.0-0.3) H Aspartate Amino Transf (AST/SGOT) 116 U/L (15-37) H Alanine Aminotransferase (ALT/SGPT) 435 U/L (12-78) H Alkaline Phosphatase 135 U/L (46-116) H Total Protein 7.0 G/DL (6.4-8.2) Albumin 3.3 G/DL (3.4-5.0) L Globulin 3.7 g/dL Albumin/Globulin Ratio 0.9 (1.0-2.7) L Lipase > 2000 U/L (73-393) H Plan Problems: (1) Acute gallstone pancreatitis Assessment & Plan: 32M gallstone pancreatitis low grade fevers leukocytosis -resolved significantly elevated LFT's/bili - trending down US with cholelithiasis MRI w/ No evidence of choledocholithiasis. Mild biliary ductal dilatation is noted. Acute pancreatitis with the enlarged appearance of the pancreas and peripancreatic/retroperitoneal fluid and inflammation. Gallstone with gallbladder wall thickening. Cholecystitis not excluded. Correlate clinically. likely passage of stone since onset. does have significant pancreatitis on MRI and exam with persistent tenderness NPO IV fluids trend labs appreciate GI input medical management of acute pancreatitis for now will likely need cholecystectomy at some point thank you. will follow with recs. Hardik Zepeda Mar 22, 2018 15:59
[2018-03-22] MEDS: D5 1/2NS 1,000 ML IV SCH ×2 (16:09→21:43)
[2018-03-22 16:32] VITALS: BP 114/70
[2018-03-22] MEDS ORDERED: Tubing IV Secondary IV ONE (16:47)
[2018-03-22] MEDS ORDERED: D5NS 1000ml IV ONE (16:47)
[2018-03-22] MEDS ORDERED: Morphine Sulfate 2mg/ml Inj IVP PRN (17:00)
--- NOTE | 2018-03-22 17:38 | General Progress Note ---
Assessment/Plan Problem List: (1) Abdominal pain ICD Codes: R10.9 - Unspecified abdominal pain SNOMED: 69314897 (2) Acute gallstone pancreatitis ICD Codes: K85.10 - Biliary acute pancreatitis without necrosis or infection SNOMED: 230399299 Status: stable, progressing Assessment/Plan cont current rx ivf npo pain rx antiemetics po trial tomorrow if stable ? Subjective ROS Limited/Unobtainable: No Constitutional: Reports: malaise, weakness HEENT: Reports: no symptoms Cardiovascular: Reports: no symptoms Respiratory: Reports: no symptoms Gastrointestinal/Abdominal: Reports: abdominal pain Genitourinary: Reports: no symptoms Neurologic/Psychiatric: Reports: no symptoms Endocrine: Reports: no symptoms Hematologic/Lymphatic: Reports: no symptoms Allergies: Coded Allergies: No Known Allergies (Unverified , 03/20/18) All Systems: reviewed and negative except above Subjective decreased abd pain. lipase still high. mrcp neg. lfts improving Objective Last 24 Hour Vital Signs Date Time Temp Pulse Resp B/P (MAP) Pulse Ox O2 Delivery O2 Flow Rate FiO2 03/22/18 12:00 99.8 88 18 115/73 (87) 98 88 03/22/18 09:00 Room Air 03/22/18 08:00 98.9 95 18 120/60 (80) 96 03/22/18 04:00 100.2 92 19 127/77 (94) 96 03/22/18 00:00 99.4 91 19 118/76 (90) 99 03/21/18 21:00 Room Air 03/21/18 20:00 99.7 87 19 109/67 (81) 99 Intake and Output 03/21/18 03/22/18 19:00 07:00 Intake Total 837.5 ml 1650 ml Output Total 400 ml Balance 837.5 ml 1250 ml IV Total 837.5 ml 1650 ml Output Urine Total 400 ml # Voids 2 2 Laboratory Tests 03/22/18 05:53: White Blood Count 10.1, Red Blood Count 5.49, Hemoglobin 16.5, Hematocrit 47.7, Mean Corpuscular Volume 87, Mean Corpuscular Hemoglobin 30.1, Mean Corpuscular Hemoglobin Concent 34.7, Red Cell Distribution Width 10.8L, Platelet Count 206, Mean Platelet Volume 7.7, Neutrophils (%) (Auto) 83.5H, Lymphocytes (%) (Auto) 8.5L, Monocytes (%) (Auto) 6.9, Eosinophils (%) (Auto) 0.4, Basophils (%) (Auto ) 0.7, Sodium Level 141, Potassium Level 3.7, Chloride Level 105, Carbon Dioxide Level 29, Anion Gap 7, Blood Urea Nitrogen 11, Creatinine 1.1, Estimat Glomerular Filtration Rate > 60, Glucose Level 109H, Calcium Level 8.7, Total Bilirubin 3.0H, Direct Bilirubin 1.3H, Aspartate Amino Transf (AST/SGOT) 116H, Alanine Aminotransferase (ALT/SGPT) 435H, Alkaline Phosphatase 135H, Total Protein 7.0, Albumin 3.3L, Globulin 3.7, Albumin/Globulin Ratio 0.9L, Lipase > 2000H Height (Feet): 6 Height (Inches): 0.00 Weight (Pounds): 195 General Appearance: WD/WN Neck: supple Cardiovascular: regular rhythm Respiratory/Chest: lungs clear Abdomen: soft, tender Edema: no edema noted Arm (L), no edema noted Arm (R), no edema noted Leg (L), no edema noted Leg (R), no edema noted Pedal (L), no edema noted Pedal (R), no edema noted Generalized Sotero Melgar MD Mar 22, 2018 17:38
[2018-03-22] MEDS: Ketorolac 30mg Inj IV PRN (19:53)
[2018-03-22 20:00] VITALS: BP 118/68
[2018-03-23] VITALS: BP 120/70
[2018-03-23] MEDS: Ketorolac 30mg Inj IV PRN ×2 (02:42→17:56)
[2018-03-23 04:00] VITALS: BP 118/66
[2018-03-23] MEDS: Piperacillin/Tazobactam 3.375 GM in D5W 110 ML IVPB SCH ×3 (06:12→22:02)
[2018-03-23] MEDS: D5 1/2NS 1,000 ML IV SCH ×2 (06:13→16:00)
[2018-03-23] MEDS: Morphine Sulfate 4mg/ml Inj (IV/IM USE ONLY) IVP PRN ×2 (06:34→21:50)
[2018-03-23 07:30] LABS: BASOPHILS % (AUTO) 0.9 % (0.0-2.0); EOSINOPHILS % (AUTO) 1.2 % (0.0-3.0); HEMATOCRIT 43.2 % (42.0-52.0); LYMPHOCYTES % (AUTO) 13.9 % (20.0-45.0); MEAN CORPUSCULAR VOLUME 87 FL (80-99); MONOCYTES % (AUTO) 7.8 % (1.0-10.0); NEUTROPHILS % (AUTO) 76.2 % (45.0-75.0); PLATELET COUNT 183 K/UL (150-450); RED BLOOD COUNT 4.98 M/UL (4.70-6.10); RED CELL DISTRIBUTION WIDTH 10.7 % (11.6-14.8); WHITE BLOOD COUNT 9.6 K/UL (4.8-10.8)
[2018-03-23 07:57] LABS: ALANINE AMINOTRANSFERASE 255 U/L (12-78); ALBUMIN 2.9 G/DL (3.4-5.0); ALBUMIN/GLOBULIN RATIO 0.7 (1.0-2.7); ALKALINE PHOSPHATASE 103 U/L (46-116); ANION GAP 7 mmol/L (5-15); ASPARTATE AMINO TRANSFERASE 43 U/L (15-37); BLOOD UREA NITROGEN 10 mg/dL (7-18); CALCIUM 8.9 MG/DL (8.5-10.1); CARBON DIOXIDE 29 MMOL/L (21-32); CHLORIDE 104 MMOL/L (98-107); POTASSIUM 3.5 MMOL/L (3.5-5.1); SODIUM 140 MMOL/L (136-145)
[2018-03-23 08:00] VITALS: BP 114/72
--- NOTE | 2018-03-23 08:54 | General Progress Note ---
Assessment/Plan Problem List: (1) Abdominal pain ICD Codes: R10.9 - Unspecified abdominal pain SNOMED: 96861716 (2) Acute gallstone pancreatitis ICD Codes: K85.10 - Biliary acute pancreatitis without necrosis or infection SNOMED: 363835080 Status: stable Assessment/Plan cont current rx ivf npo pain rx antiemetics trial clear liquids, instructed to stop if pain gets worse Subjective ROS Limited/Unobtainable: No Constitutional: Reports: malaise, weakness HEENT: Reports: no symptoms Cardiovascular: Reports: no symptoms Respiratory: Reports: no symptoms Gastrointestinal/Abdominal: Reports: abdominal pain Genitourinary: Reports: no symptoms Neurologic/Psychiatric: Reports: no symptoms Endocrine: Reports: no symptoms Hematologic/Lymphatic: Reports: no symptoms Allergies: Coded Allergies: No Known Allergies (Unverified , 03/20/18) All Systems: reviewed and negative except above Subjective decreased abd pain. lipase trending down. c/o lower abd crampy pain. upper midepigastric pain better. Objective Last 24 Hour Vital Signs Date Time Temp Pulse Resp B/P (MAP) Pulse Ox O2 Delivery O2 Flow Rate FiO2 03/23/18 04:00 98.4 76 18 118/66 (83) 95 80 03/23/18 00:00 98.2 83 18 120/70 (87) 95 80 03/22/18 21:00 Room Air 03/22/18 20:00 99.3 83 18 118/68 (85) 97 79 03/22/18 16:32 99.6 83 18 114/70 (85) 97 83 03/22/18 12:00 99.8 88 18 115/73 (87) 98 88 03/22/18 09:00 Room Air Intake and Output 03/22/18 03/23/18 19:00 07:00 Intake Total 1450 ml Balance 1450 ml Intake Oral 250 ml IV Total 1200 ml # Voids 3 3 Laboratory Tests 03/23/18 06:35: White Blood Count 9.6, Red Blood Count 4.98, Hemoglobin 15.0, Hematocrit 43.2, Mean Corpuscular Volume 87, Mean Corpuscular Hemoglobin 30.0, Mean Corpuscular Hemoglobin Concent 34.7, Red Cell Distribution Width 10.7L, Platelet Count 183, Mean Platelet Volume 7.2, Neutrophils (%) (Auto) 76.2H, Lymphocytes (%) (Auto) 13.9L, Monocytes (%) (Auto) 7.8, Eosinophils (%) (Auto) 1.2, Basophils (%) (Auto ) 0.9, Sodium Level 140, Potassium Level 3.5, Chloride Level 104, Carbon Dioxide Level 29, Anion Gap 7, Blood Urea Nitrogen 10, Creatinine 1.0, Estimat Glomerular Filtration Rate > 60, Glucose Level 103, Calcium Level 8.9, Total Bilirubin 2.0H, Direct Bilirubin 1.0H, Aspartate Amino Transf (AST/SGOT) 43H, Alanine Aminotransferase (ALT/SGPT) 255H, Alkaline Phosphatase 103, Total Protein 6.8, Albumin 2.9L, Globulin 3.9, Albumin/Globulin Ratio 0.7L, Lipase 1847H Height (Feet): 6 Height (Inches): 0.00 Weight (Pounds): 195 Abdomen: soft, no organomegaly, tender Sotero Melgar MD Mar 23, 2018 08:54
[2018-03-23] MEDS ORDERED: Bisacodyl EC 5mg tab ORAL PRN (09:00)
[2018-03-23] MEDS: Pantoprazole Inj IVP SCH (09:32)
[2018-03-23] MEDS: Heparin 5000 units/ml inj SUBQ SCH ×2 (09:33→22:03)
[2018-03-23] MEDS: Simethicone 80mg tab ORAL PRN ×2 (09:46→19:45)
--- NOTE | 2018-03-23 10:40 | GI Progress Note ---
Assessment/Plan Problems: (1) Abdominal pain ICD Codes: R10.9 - Unspecified abdominal pain SNOMED: 48708504 (2) Acute gallstone pancreatitis ICD Codes: K85.10 - Biliary acute pancreatitis without necrosis or infection SNOMED: 261167743 Status: stable Status Narrative Discussed with Dr. David Assessment/Plan MRCP resulted >> no gallstones noted, most likely have passed LFTs elevated, downtrending defer ERCP at this time Clear liquid diet, diet per surgery fu surgical recommendations for possible brandon pain mgmt d/w POC with patient family fu labs The patient was seen and examined at bedside and all new and available data was reviewed in the patients chart. I agree with the above findings, impression and plan. (Patient seen earlier today. Signature stamp does not reflect patient encounter time.). - Mike David MD Subjective Subjective The patient continues to complain of severe abdominal pain States that he feels like the morphine mask the pain temporarily Patient had clear liquid diet this morning, able to tolerate without any nausea or vomiting Objective Last 24 Hour Vital Signs Date Time Temp Pulse Resp B/P (MAP) Pulse Ox O2 Delivery O2 Flow Rate FiO2 03/23/18 09:00 Room Air 03/23/18 08:00 98.0 80 18 114/72 (86) 96 03/23/18 04:00 98.4 76 18 118/66 (83) 95 80 03/23/18 00:00 98.2 83 18 120/70 (87) 95 80 03/22/18 21:00 Room Air 03/22/18 20:00 99.3 83 18 118/68 (85) 97 79 03/22/18 16:32 99.6 83 18 114/70 (85) 97 83 03/22/18 12:00 99.8 88 18 115/73 (87) 98 88 Intake and Output 03/22/18 03/23/18 19:00 07:00 Intake Total 1450 ml Balance 1450 ml Intake Oral 250 ml IV Total 1200 ml # Voids 3 3 Laboratory Tests Test 03/23/18 06:35 White Blood Count 9.6 K/UL (4.8-10.8) Red Blood Count 4.98 M/UL (4.70-6.10) Hemoglobin 15.0 G/DL (14.2-18.0) Hematocrit 43.2 % (42.0-52.0) Mean Corpuscular Volume 87 FL (80-99) Mean Corpuscular Hemoglobin 30.0 PG (27.0-31.0) Mean Corpuscular Hemoglobin Concent 34.7 G/DL (32.0-36.0) Red Cell Distribution Width 10.7 % (11.6-14.8) L Platelet Count 183 K/UL (150-450) Mean Platelet Volume 7.2 FL (6.5-10.1) Neutrophils (%) (Auto) 76.2 % (45.0-75.0) H Lymphocytes (%) (Auto) 13.9 % (20.0-45.0) L Monocytes (%) (Auto) 7.8 % (1.0-10.0) Eosinophils (%) (Auto) 1.2 % (0.0-3.0) Basophils (%) (Auto) 0.9 % (0.0-2.0) Sodium Level 140 MMOL/L (136-145) Potassium Level 3.5 MMOL/L (3.5-5.1) Chloride Level 104 MMOL/L (98-107) Carbon Dioxide Level 29 MMOL/L (21-32) Anion Gap 7 mmol/L (5-15) Blood Urea Nitrogen 10 mg/dL (7-18) Creatinine 1.0 MG/DL (0.55-1.30) Estimat Glomerular Filtration Rate > 60 mL/min (>60) Glucose Level 103 MG/DL (74-106) Calcium Level 8.9 MG/DL (8.5-10.1) Total Bilirubin 2.0 MG/DL (0.2-1.0) H Direct Bilirubin 1.0 MG/DL (0.0-0.3) H Aspartate Amino Transf (AST/SGOT) 43 U/L (15-37) H Alanine Aminotransferase (ALT/SGPT) 255 U/L (12-78) H Alkaline Phosphatase 103 U/L (46-116) Total Protein 6.8 G/DL (6.4-8.2) Albumin 2.9 G/DL (3.4-5.0) L Globulin 3.9 g/dL Albumin/Globulin Ratio 0.7 (1.0-2.7) L Lipase 1847 U/L (73-393) H Height (Feet): 6 Height (Inches): 0.00 Weight (Pounds): 195 General Appearance: WD/WN, no apparent distress, alert Cardiovascular: normal rate Respiratory/Chest: normal breath sounds, no respiratory distress Abdominal Exam: normal bowel sounds, non tender, soft Extremities: normal range of motion, non-tender Saran Bronson NP Mar 23, 2018 10:40
[2018-03-23 12:00] VITALS: BP 118/74
[2018-03-23 16:00] VITALS: BP 121/69
--- NOTE | 2018-03-23 16:46 | General Surgery Progress Note ---
General Surgery-Progress Note Subjective Additional Comments pain better. exam improved. feels better. less narcotic requirement. no n/v/ f/c. labs improved Objective Last 24 Hour Vital Signs Date Time Temp Pulse Resp B/P (MAP) Pulse Ox O2 Delivery O2 Flow Rate FiO2 03/23/18 14:19 97.9 03/23/18 12:00 97.9 79 18 118/74 (89) 97 03/23/18 09:00 Room Air 03/23/18 08:00 98.0 80 18 114/72 (86) 96 03/23/18 04:00 98.4 76 18 118/66 (83) 95 80 03/23/18 00:00 98.2 83 18 120/70 (87) 95 80 03/22/18 21:00 Room Air 03/22/18 20:00 99.3 83 18 118/68 (85) 97 79 I&O Intake and Output 03/22/18 03/23/18 19:00 07:00 Intake Total 1450 ml Balance 1450 ml Intake Oral 250 ml IV Total 1200 ml # Voids 3 3 Drains: none Cardiovascular: RSR Respiratory: clear Abdomen: soft, distended, tenderness, present bowel sounds Extremities: no tenderness, no cyanosis Laboratory Tests Test 03/23/18 06:35 White Blood Count 9.6 K/UL (4.8-10.8) Red Blood Count 4.98 M/UL (4.70-6.10) Hemoglobin 15.0 G/DL (14.2-18.0) Hematocrit 43.2 % (42.0-52.0) Mean Corpuscular Volume 87 FL (80-99) Mean Corpuscular Hemoglobin 30.0 PG (27.0-31.0) Mean Corpuscular Hemoglobin Concent 34.7 G/DL (32.0-36.0) Red Cell Distribution Width 10.7 % (11.6-14.8) L Platelet Count 183 K/UL (150-450) Mean Platelet Volume 7.2 FL (6.5-10.1) Neutrophils (%) (Auto) 76.2 % (45.0-75.0) H Lymphocytes (%) (Auto) 13.9 % (20.0-45.0) L Monocytes (%) (Auto) 7.8 % (1.0-10.0) Eosinophils (%) (Auto) 1.2 % (0.0-3.0) Basophils (%) (Auto) 0.9 % (0.0-2.0) Sodium Level 140 MMOL/L (136-145) Potassium Level 3.5 MMOL/L (3.5-5.1) Chloride Level 104 MMOL/L (98-107) Carbon Dioxide Level 29 MMOL/L (21-32) Anion Gap 7 mmol/L (5-15) Blood Urea Nitrogen 10 mg/dL (7-18) Creatinine 1.0 MG/DL (0.55-1.30) Estimat Glomerular Filtration Rate > 60 mL/min (>60) Glucose Level 103 MG/DL (74-106) Calcium Level 8.9 MG/DL (8.5-10.1) Total Bilirubin 2.0 MG/DL (0.2-1.0) H Direct Bilirubin 1.0 MG/DL (0.0-0.3) H Aspartate Amino Transf (AST/SGOT) 43 U/L (15-37) H Alanine Aminotransferase (ALT/SGPT) 255 U/L (12-78) H Alkaline Phosphatase 103 U/L (46-116) Total Protein 6.8 G/DL (6.4-8.2) Albumin 2.9 G/DL (3.4-5.0) L Globulin 3.9 g/dL Albumin/Globulin Ratio 0.7 (1.0-2.7) L Lipase 1847 U/L (73-393) H Plan Problems: (1) Acute gallstone pancreatitis Assessment & Plan: 32M gallstone pancreatitis low grade fevers leukocytosis -resolved significantly elevated LFT's/bili - trending down US with cholelithiasis MRI w/ No evidence of choledocholithiasis. Mild biliary ductal dilatation is noted. Acute pancreatitis with the enlarged appearance of the pancreas and peripancreatic/retroperitoneal fluid and inflammation. Gallstone with gallbladder wall thickening. Cholecystitis not excluded. Correlate clinically. likely passage of stone since onset. does have significant pancreatitis on MRI and exam with persistent tenderness trial clears. instructed to stop if pain. IV fluids trend labs medical management of acute pancreatitis for now will likely need cholecystectomy at some point thank you. will follow with recs. Hardik Zepeda Mar 23, 2018 16:46
[2018-03-23 20:00] VITALS: BP 123/74
[2018-03-24] VITALS: BP 146/84
[2018-03-24] MEDS: Ketorolac 30mg Inj IV PRN ×4 (00:49→21:57)
[2018-03-24 04:00] VITALS: BP 129/81
[2018-03-24] MEDS: D5 1/2NS 1,000 ML IV SCH ×3 (05:25→13:23)
[2018-03-24] MEDS: Piperacillin/Tazobactam 3.375 GM in D5W 110 ML IVPB SCH ×3 (06:53→21:18)
[2018-03-24 07:24] LABS: BASOPHILS % (AUTO) 1.1 % (0.0-2.0); EOSINOPHILS % (AUTO) 1.4 % (0.0-3.0); HEMATOCRIT 44.4 % (42.0-52.0); HEMOGLOBIN 15.4 G/DL (14.2-18.0); LYMPHOCYTES % (AUTO) 11.4 % (20.0-45.0); MEAN CORPUSCULAR VOLUME 87 FL (80-99); MONOCYTES % (AUTO) 7.7 % (1.0-10.0); NEUTROPHILS % (AUTO) 78.4 % (45.0-75.0); PLATELET COUNT 207 K/UL (150-450); RED BLOOD COUNT 5.12 M/UL (4.70-6.10); RED CELL DISTRIBUTION WIDTH 10.6 % (11.6-14.8); WHITE BLOOD COUNT 9.5 K/UL (4.8-10.8)
[2018-03-24 07:42] LABS: ALANINE AMINOTRANSFERASE 194 U/L (12-78); ALBUMIN 3.1 G/DL (3.4-5.0); ALBUMIN/GLOBULIN RATIO 0.7 (1.0-2.7); ALKALINE PHOSPHATASE 99 U/L (46-116); ANION GAP 8 mmol/L (5-15); ASPARTATE AMINO TRANSFERASE 30 U/L (15-37); BILIRUBIN,TOTAL 1.7 MG/DL (0.2-1.0); BLOOD UREA NITROGEN 6 mg/dL (7-18); CALCIUM 9.3 MG/DL (8.5-10.1); CARBON DIOXIDE 28 MMOL/L (21-32); CHLORIDE 104 MMOL/L (98-107); POTASSIUM 3.4 MMOL/L (3.5-5.1); SODIUM 140 MMOL/L (136-145)
[2018-03-24 07:44] LABS: BILIRUBIN,DIRECT 0.8 MG/DL (0.0-0.3)
[2018-03-24 08:00] VITALS: BP 127/73
[2018-03-24] MEDS: Heparin 5000 units/ml inj SUBQ SCH ×2 (08:40→21:00)
--- NOTE | 2018-03-24 09:43 | General Progress Note ---
Assessment/Plan Problem List: (1) Abdominal pain ICD Codes: R10.9 - Unspecified abdominal pain SNOMED: 42303996 (2) Acute gallstone pancreatitis ICD Codes: K85.10 - Biliary acute pancreatitis without necrosis or infection SNOMED: 928672395 Status: stable Assessment/Plan cont current rx ivf npo pain rx antiemetics full liquids, instructed to stop if pain gets worse Subjective ROS Limited/Unobtainable: No Constitutional: Reports: malaise, weakness HEENT: Reports: no symptoms Cardiovascular: Reports: no symptoms Respiratory: Reports: no symptoms Gastrointestinal/Abdominal: Reports: no symptoms Genitourinary: Reports: no symptoms Neurologic/Psychiatric: Reports: no symptoms Endocrine: Reports: no symptoms Hematologic/Lymphatic: Reports: no symptoms Allergies: Coded Allergies: No Known Allergies (Unverified , 03/20/18) All Systems: reviewed and negative except above Subjective decreased abd pain. lipase trending down. c/o lower abd crampy pain. upper midepigastric pain better. Objective Last 24 Hour Vital Signs Date Time Temp Pulse Resp B/P (MAP) Pulse Ox O2 Delivery O2 Flow Rate FiO2 03/24/18 08:00 99.1 79 19 127/73 (91) 97 79 03/24/18 04:00 98.0 77 18 129/81 (97) 95 03/24/18 00:00 98.2 85 18 146/84 (104) 95 03/23/18 21:00 Room Air 03/23/18 20:00 99.4 71 18 123/74 (90) 98 03/23/18 16:00 99.5 79 18 121/69 (86) 98 03/23/18 14:19 97.9 03/23/18 12:00 97.9 79 18 118/74 (89) 97 Intake and Output 03/23/18 03/24/18 18:59 06:59 Intake Total 2340 ml 2115 ml Output Total 400 ml Balance 2340 ml 1715 ml Intake Oral 840 ml 840 ml IV Total 1500 ml 1275 ml Output Urine Total 400 ml # Voids 6 6 # Bowel Movements 1 Laboratory Tests 03/24/18 06:47: White Blood Count 9.5, Red Blood Count 5.12, Hemoglobin 15.4, Hematocrit 44.4, Mean Corpuscular Volume 87, Mean Corpuscular Hemoglobin 30.1, Mean Corpuscular Hemoglobin Concent 34.7, Red Cell Distribution Width 10.6L, Platelet Count 207, Mean Platelet Volume 7.9, Neutrophils (%) (Auto) 78.4H, Lymphocytes (%) (Auto) 11.4L, Monocytes (%) (Auto) 7.7, Eosinophils (%) (Auto) 1.4, Basophils (%) (Auto ) 1.1, Sodium Level 140, Potassium Level 3.4L, Chloride Level 104, Carbon Dioxide Level 28, Anion Gap 8, Blood Urea Nitrogen 6L, Creatinine 1.0, Estimat Glomerular Filtration Rate > 60, Glucose Level 107H, Calcium Level 9.3, Total Bilirubin 1.7H, Direct Bilirubin 0.8H, Aspartate Amino Transf (AST/SGOT) 30, Alanine Aminotransferase (ALT/SGPT) 194H, Alkaline Phosphatase 99, Total Protein 7.7, Albumin 3.1L, Globulin 4.6, Albumin/Globulin Ratio 0.7L, Lipase 1197H Height (Feet): 6 Height (Inches): 0.00 Weight (Pounds): 195 General Appearance: WD/WN Neck: supple Cardiovascular: regular rhythm Respiratory/Chest: lungs clear Abdomen: normal bowel sounds, non tender, soft, no organomegaly Edema: no edema noted Arm (L), no edema noted Arm (R), no edema noted Leg (L), no edema noted Leg (R), no edema noted Pedal (L), no edema noted Pedal (R), no edema noted 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
[2018-03-24] MEDS: Pantoprazole Inj IVP SCH (09:51)
--- NOTE | 2018-03-24 11:38 | GI Progress Note ---
Assessment/Plan Problems: (1) Abdominal pain ICD Codes: R10.9 - Unspecified abdominal pain SNOMED: 99027257 (2) Acute gallstone pancreatitis ICD Codes: K85.10 - Biliary acute pancreatitis without necrosis or infection SNOMED: 982222183 Status: stable Status Narrative Discussed with Dr. David. Assessment/Plan MRCP resulted >> no gallstones noted, most likely have passed LFTs elevated, downtrending defer ERCP at this time okay for DC per GI standpoint if tolerated diet fu surgical recommendations for possible brandon pain mgmt d/w POC with patient family fu labs The patient was seen and examined at bedside and all new and available data was reviewed in the patients chart. I agree with the above findings, impression and plan. (Patient seen earlier today. Signature stamp does not reflect patient encounter time.). - Mike David MD Subjective Subjective The patient continues to complain of abdominal pain States that he feels like the morphine mask the pain temporarily able to tolerate without any nausea or vomiting Objective Last 24 Hour Vital Signs Date Time Temp Pulse Resp B/P (MAP) Pulse Ox O2 Delivery O2 Flow Rate FiO2 03/24/18 08:00 99.1 79 19 127/73 (91) 97 79 03/24/18 04:00 98.0 77 18 129/81 (97) 95 03/24/18 00:00 98.2 85 18 146/84 (104) 95 03/23/18 21:00 Room Air 03/23/18 20:00 99.4 71 18 123/74 (90) 98 03/23/18 16:00 99.5 79 18 121/69 (86) 98 03/23/18 14:19 97.9 03/23/18 12:00 97.9 79 18 118/74 (89) 97 Intake and Output 03/23/18 03/24/18 19:00 07:00 Intake Total 2615 ml 1840 ml Output Total 400 ml Balance 2615 ml 1440 ml Intake Oral 840 ml 840 ml IV Total 1775 ml 1000 ml Output Urine Total 400 ml # Voids 6 6 # Bowel Movements 1 Laboratory Tests Test 03/24/18 06:47 White Blood Count 9.5 K/UL (4.8-10.8) Red Blood Count 5.12 M/UL (4.70-6.10) Hemoglobin 15.4 G/DL (14.2-18.0) Hematocrit 44.4 % (42.0-52.0) Mean Corpuscular Volume 87 FL (80-99) Mean Corpuscular Hemoglobin 30.1 PG (27.0-31.0) Mean Corpuscular Hemoglobin Concent 34.7 G/DL (32.0-36.0) Red Cell Distribution Width 10.6 % (11.6-14.8) L Platelet Count 207 K/UL (150-450) Mean Platelet Volume 7.9 FL (6.5-10.1) Neutrophils (%) (Auto) 78.4 % (45.0-75.0) H Lymphocytes (%) (Auto) 11.4 % (20.0-45.0) L Monocytes (%) (Auto) 7.7 % (1.0-10.0) Eosinophils (%) (Auto) 1.4 % (0.0-3.0) Basophils (%) (Auto) 1.1 % (0.0-2.0) Sodium Level 140 MMOL/L (136-145) Potassium Level 3.4 MMOL/L (3.5-5.1) L Chloride Level 104 MMOL/L (98-107) Carbon Dioxide Level 28 MMOL/L (21-32) Anion Gap 8 mmol/L (5-15) Blood Urea Nitrogen 6 mg/dL (7-18) L Creatinine 1.0 MG/DL (0.55-1.30) Estimat Glomerular Filtration Rate > 60 mL/min (>60) Glucose Level 107 MG/DL (74-106) H Calcium Level 9.3 MG/DL (8.5-10.1) Total Bilirubin 1.7 MG/DL (0.2-1.0) H Direct Bilirubin 0.8 MG/DL (0.0-0.3) H Aspartate Amino Transf (AST/SGOT) 30 U/L (15-37) Alanine Aminotransferase (ALT/SGPT) 194 U/L (12-78) H Alkaline Phosphatase 99 U/L (46-116) Total Protein 7.7 G/DL (6.4-8.2) Albumin 3.1 G/DL (3.4-5.0) L Globulin 4.6 g/dL Albumin/Globulin Ratio 0.7 (1.0-2.7) L Lipase 1197 U/L (73-393) H Height (Feet): 6 Height (Inches): 0.00 Weight (Pounds): 195 General Appearance: WD/WN, no apparent distress, alert Cardiovascular: normal rate Respiratory/Chest: normal breath sounds, no respiratory distress Abdominal Exam: normal bowel sounds, non tender, soft Extremities: normal range of motion, non-tender Saran Bronson NP Mar 24, 2018 11:38
[2018-03-24] MEDS: Morphine Sulfate 4mg/ml Inj (IV/IM USE ONLY) IVP PRN (11:39)
[2018-03-24 11:56] VITALS: BP 145/93
--- NOTE | 2018-03-24 13:01 | General Surgery Progress Note ---
General Surgery-Progress Note Subjective Symptoms: improved, tolerating diet, passing flatus, BM Objective Last 24 Hour Vital Signs Date Time Temp Pulse Resp B/P (MAP) Pulse Ox O2 Delivery O2 Flow Rate FiO2 03/24/18 12:09 98.9 03/24/18 11:56 98.9 81 19 145/93 (110) 99 81 03/24/18 09:00 Room Air 03/24/18 08:00 99.1 79 19 127/73 (91) 97 79 03/24/18 04:00 98.0 77 18 129/81 (97) 95 03/24/18 00:00 98.2 85 18 146/84 (104) 95 03/23/18 21:00 Room Air 03/23/18 20:00 99.4 71 18 123/74 (90) 98 03/23/18 16:00 99.5 79 18 121/69 (86) 98 03/23/18 14:19 97.9 I&O Intake and Output 03/23/18 03/24/18 19:00 07:00 Intake Total 2615 ml 1840 ml Output Total 400 ml Balance 2615 ml 1440 ml Intake Oral 840 ml 840 ml IV Total 1775 ml 1000 ml Output Urine Total 400 ml # Voids 6 6 # Bowel Movements 1 Drains: none Cardiovascular: RSR Respiratory: clear Abdomen: soft, flat, non-tender, present bowel sounds Extremities: no edema, no tenderness, no cyanosis Laboratory Tests Test 03/24/18 06:47 White Blood Count 9.5 K/UL (4.8-10.8) Red Blood Count 5.12 M/UL (4.70-6.10) Hemoglobin 15.4 G/DL (14.2-18.0) Hematocrit 44.4 % (42.0-52.0) Mean Corpuscular Volume 87 FL (80-99) Mean Corpuscular Hemoglobin 30.1 PG (27.0-31.0) Mean Corpuscular Hemoglobin Concent 34.7 G/DL (32.0-36.0) Red Cell Distribution Width 10.6 % (11.6-14.8) L Platelet Count 207 K/UL (150-450) Mean Platelet Volume 7.9 FL (6.5-10.1) Neutrophils (%) (Auto) 78.4 % (45.0-75.0) H Lymphocytes (%) (Auto) 11.4 % (20.0-45.0) L Monocytes (%) (Auto) 7.7 % (1.0-10.0) Eosinophils (%) (Auto) 1.4 % (0.0-3.0) Basophils (%) (Auto) 1.1 % (0.0-2.0) Sodium Level 140 MMOL/L (136-145) Potassium Level 3.4 MMOL/L (3.5-5.1) L Chloride Level 104 MMOL/L (98-107) Carbon Dioxide Level 28 MMOL/L (21-32) Anion Gap 8 mmol/L (5-15) Blood Urea Nitrogen 6 mg/dL (7-18) L Creatinine 1.0 MG/DL (0.55-1.30) Estimat Glomerular Filtration Rate > 60 mL/min (>60) Glucose Level 107 MG/DL (74-106) H Calcium Level 9.3 MG/DL (8.5-10.1) Total Bilirubin 1.7 MG/DL (0.2-1.0) H Direct Bilirubin 0.8 MG/DL (0.0-0.3) H Aspartate Amino Transf (AST/SGOT) 30 U/L (15-37) Alanine Aminotransferase (ALT/SGPT) 194 U/L (12-78) H Alkaline Phosphatase 99 U/L (46-116) Total Protein 7.7 G/DL (6.4-8.2) Albumin 3.1 G/DL (3.4-5.0) L Globulin 4.6 g/dL Albumin/Globulin Ratio 0.7 (1.0-2.7) L Lipase 1197 U/L (73-393) H Plan Problems: (1) Acute gallstone pancreatitis Assessment & Plan: 32M gallstone pancreatitis low grade fevers leukocytosis -resolved significantly elevated LFT's/bili - trending down US with cholelithiasis MRI w/ No evidence of choledocholithiasis. Mild biliary ductal dilatation is noted. Acute pancreatitis with the enlarged appearance of the pancreas and peripancreatic/retroperitoneal fluid and inflammation. Gallstone with gallbladder wall thickening. Cholecystitis not excluded. Correlate clinically. likely passage of stone since onset. does have significant pancreatitis on MRI and exam with persistent tenderness full liquids. advance to soft low fat diet tomorrow if tolerated IV fluids decreased trend labs d/c morphine will likely need cholecystectomy at some point thank you. will follow with recs. Hardik Zepeda Mar 24, 2018 13:01
[2018-03-24 16:00] VITALS: BP 146/86
[2018-03-24] MEDS ORDERED: D5 1/2NS 1000ml IV ONE (17:34)
[2018-03-24] MEDS ORDERED: Tubing IV Secondary IV ONE (17:34)
[2018-03-24] MEDS ORDERED: NS 275ml ONE (17:34)
[2018-03-24] MEDS: Simethicone 80mg tab ORAL PRN ×2 (19:03→21:17)
[2018-03-24 20:00] VITALS: BP 129/84
[2018-03-25] VITALS: BP 142/82
[2018-03-25] MEDS: Simethicone 80mg tab ORAL PRN (01:20)
[2018-03-25] MEDS: D5 1/2NS 1,000 ML IV SCH ×4 (02:20→19:58)
[2018-03-25] MEDS: Ketorolac 30mg Inj IV PRN (03:51)
[2018-03-25 05:40] LABS: EOSINOPHILS % (AUTO) 2.4 % (0.0-3.0); HEMATOCRIT 39.3 % (42.0-52.0); HEMOGLOBIN 13.7 G/DL (14.2-18.0); LYMPHOCYTES % (AUTO) 12.8 % (20.0-45.0); MEAN CORPUSCULAR VOLUME 86 FL (80-99); MONOCYTES % (AUTO) 8.1 % (1.0-10.0); NEUTROPHILS % (AUTO) 75.7 % (45.0-75.0); PLATELET COUNT 210 K/UL (150-450); RED BLOOD COUNT 4.57 M/UL (4.70-6.10); RED CELL DISTRIBUTION WIDTH 10.4 % (11.6-14.8); WHITE BLOOD COUNT 8.7 K/UL (4.8-10.8)
[2018-03-25] MEDS: Piperacillin/Tazobactam 3.375 GM in D5W 110 ML IVPB SCH ×3 (05:53→21:32)
[2018-03-25 06:04] LABS: ALANINE AMINOTRANSFERASE 128 U/L (12-78); ALBUMIN 2.8 G/DL (3.4-5.0); ALBUMIN/GLOBULIN RATIO 0.7 (1.0-2.7); ALKALINE PHOSPHATASE 86 U/L (46-116); ANION GAP 6 mmol/L (5-15); ASPARTATE AMINO TRANSFERASE 25 U/L (15-37); BILIRUBIN,TOTAL 1.3 MG/DL (0.2-1.0); BLOOD UREA NITROGEN 6 mg/dL (7-18); CALCIUM 9.2 MG/DL (8.5-10.1); CARBON DIOXIDE 29 MMOL/L (21-32); CHLORIDE 105 MMOL/L (98-107); POTASSIUM 3.6 MMOL/L (3.5-5.1); SODIUM 140 MMOL/L (136-145)
[2018-03-25 06:11] LABS: BILIRUBIN,DIRECT 0.6 MG/DL (0.0-0.3)
[2018-03-25 06:30] VITALS: BP 135/65
[2018-03-25 08:00] VITALS: BP 140/90
[2018-03-25] MEDS ORDERED: Morphine Sulfate 4mg/ml Inj (IV/IM USE ONLY) IVP PRN (08:30)
[2018-03-25 08:35] VITALS: BP 140/90
[2018-03-25] MEDS ORDERED: D5 1/2NS 1000ml IV ONE (10:10)
--- NOTE | 2018-03-25 10:11 | General Surgery Progress Note ---
General Surgery-Progress Note Subjective Additional Comments still with abdominal cramping but improved. epigastric discomfort. no n/v/f/ c. passing flatus. ambulatory. Objective Last 24 Hour Vital Signs Date Time Temp Pulse Resp B/P (MAP) Pulse Ox O2 Delivery O2 Flow Rate FiO2 03/25/18 06:30 97.6 75 18 135/65 (88) 97 75 03/25/18 00:00 97.8 77 18 142/82 (102) 97 77 03/24/18 21:00 Room Air 03/24/18 20:00 98.9 81 18 129/84 (99) 98 81 03/24/18 16:26 99.1 03/24/18 16:00 99.1 67 21 146/86 (106) 100 67 03/24/18 12:09 98.9 03/24/18 11:56 98.9 81 19 145/93 (110) 99 81 I&O Intake and Output 03/24/18 03/25/18 18:59 06:59 Intake Total 1540.0 ml 860.0 ml Balance 1540.0 ml 860.0 ml IV Total 690.0 ml 860.0 ml Other 850 ml # Voids 3 3 Drains: none Cardiovascular: RSR Respiratory: clear Abdomen: soft, distended, non-tender, present bowel sounds Extremities: no edema, no tenderness, no cyanosis Laboratory Tests Test 03/25/18 05:11 White Blood Count 8.7 K/UL (4.8-10.8) Red Blood Count 4.57 M/UL (4.70-6.10) L Hemoglobin 13.7 G/DL (14.2-18.0) L Hematocrit 39.3 % (42.0-52.0) L Mean Corpuscular Volume 86 FL (80-99) Mean Corpuscular Hemoglobin 30.0 PG (27.0-31.0) Mean Corpuscular Hemoglobin Concent 34.9 G/DL (32.0-36.0) Red Cell Distribution Width 10.4 % (11.6-14.8) L Platelet Count 210 K/UL (150-450) Mean Platelet Volume 7.1 FL (6.5-10.1) Neutrophils (%) (Auto) 75.7 % (45.0-75.0) H Lymphocytes (%) (Auto) 12.8 % (20.0-45.0) L Monocytes (%) (Auto) 8.1 % (1.0-10.0) Eosinophils (%) (Auto) 2.4 % (0.0-3.0) Basophils (%) (Auto) 1.0 % (0.0-2.0) Sodium Level 140 MMOL/L (136-145) Potassium Level 3.6 MMOL/L (3.5-5.1) Chloride Level 105 MMOL/L (98-107) Carbon Dioxide Level 29 MMOL/L (21-32) Anion Gap 6 mmol/L (5-15) Blood Urea Nitrogen 6 mg/dL (7-18) L Creatinine 1.0 MG/DL (0.55-1.30) Estimat Glomerular Filtration Rate > 60 mL/min (>60) Glucose Level 109 MG/DL (74-106) H Calcium Level 9.2 MG/DL (8.5-10.1) Total Bilirubin 1.3 MG/DL (0.2-1.0) H Direct Bilirubin 0.6 MG/DL (0.0-0.3) H Aspartate Amino Transf (AST/SGOT) 25 U/L (15-37) Alanine Aminotransferase (ALT/SGPT) 128 U/L (12-78) H Alkaline Phosphatase 86 U/L (46-116) Total Protein 7.0 G/DL (6.4-8.2) Albumin 2.8 G/DL (3.4-5.0) L Globulin 4.2 g/dL Albumin/Globulin Ratio 0.7 (1.0-2.7) L Lipase 1293 U/L (73-393) H Plan Problems: (1) Acute gallstone pancreatitis Assessment & Plan: 32M gallstone pancreatitis low grade fevers leukocytosis -resolved significantly elevated LFT's/bili - trending down US with cholelithiasis MRI w/ No evidence of choledocholithiasis. Mild biliary ductal dilatation is noted. Acute pancreatitis with the enlarged appearance of the pancreas and peripancreatic/retroperitoneal fluid and inflammation. Gallstone with gallbladder wall thickening. Cholecystitis not excluded. Correlate clinically. likely passage of stone since onset. does have significant pancreatitis on MRI and exam with persistent tenderness labs noted. mild elevation in lipase NPO IV fluids trend labs rx as written will likely need cholecystectomy at some point thank you. will follow with recs. okay for patient to ambulate. okay for patient to be off unit for fresh air. okay to shower. okay to have ice chips. patient has family with him and has no risk factors for fall. patient young healthy male who is ambulatory without assistance or needs. thank you Hardik Zepeda Mar 25, 2018 10:11
[2018-03-25] MEDS ORDERED: Ketorolac 30mg Inj IV PRN (10:15)
[2018-03-25] MEDS: Heparin 5000 units/ml inj SUBQ SCH ×2 (13:38→21:00)
[2018-03-25] MEDS ORDERED: Morphine Sulfate 2mg/ml Inj IVP ONE (14:00)
[2018-03-25] MEDS ORDERED: Morphine Sulfate 2mg/ml Inj IVP PRN (14:15)
[2018-03-25 16:00] VITALS: BP 138/94
[2018-03-25] MEDS: HYDROmorphone 1mg/ml Carpuject IVP PRN ×2 (16:49→21:30)
[2018-03-25] MEDS: Morphine Sulfate 2mg/ml Inj IVP PRN (19:52)
[2018-03-25 20:00] VITALS: BP 143/82
[2018-03-26] VITALS: BP 128/84
[2018-03-26] MEDS: Morphine Sulfate 2mg/ml Inj IVP PRN (01:16)
[2018-03-26] MEDS: D5 1/2NS 1,000 ML IV SCH ×3 (06:10→21:36)
[2018-03-26 08:00] VITALS: BP 133/80
[2018-03-26 08:50] LABS: BASOPHILS % (AUTO) 0.6 % (0.0-2.0); EOSINOPHILS % (AUTO) 2.2 % (0.0-3.0); HEMATOCRIT 43.8 % (42.0-52.0); HEMOGLOBIN 15.1 G/DL (14.2-18.0); LYMPHOCYTES % (AUTO) 10.2 % (20.0-45.0); MEAN CORPUSCULAR VOLUME 86 FL (80-99); MONOCYTES % (AUTO) 7.5 % (1.0-10.0); NEUTROPHILS % (AUTO) 79.6 % (45.0-75.0); PLATELET COUNT 257 K/UL (150-450); RED BLOOD COUNT 5.09 M/UL (4.70-6.10); RED CELL DISTRIBUTION WIDTH 10.2 % (11.6-14.8); WHITE BLOOD COUNT 10.3 K/UL (4.8-10.8)
[2018-03-26] MEDS: Heparin 5000 units/ml inj SUBQ SCH ×2 (09:06→21:39)
[2018-03-26 09:19] LABS: ALANINE AMINOTRANSFERASE 124 U/L (12-78); ALBUMIN 3.4 G/DL (3.4-5.0); ALBUMIN/GLOBULIN RATIO 0.7 (1.0-2.7); ALKALINE PHOSPHATASE 100 U/L (46-116); ANION GAP 10 mmol/L (5-15); ASPARTATE AMINO TRANSFERASE 40 U/L (15-37); BILIRUBIN,TOTAL 1.3 MG/DL (0.2-1.0); BLOOD UREA NITROGEN 6 mg/dL (7-18); CALCIUM 9.6 MG/DL (8.5-10.1); CARBON DIOXIDE 29 MMOL/L (21-32); CHLORIDE 101 MMOL/L (98-107); POTASSIUM 3.7 MMOL/L (3.5-5.1); SODIUM 140 MMOL/L (136-145)
[2018-03-26 09:31] LABS: BILIRUBIN,DIRECT 0.7 MG/DL (0.0-0.3)
--- NOTE | 2018-03-26 10:14 | General Progress Note ---
Assessment/Plan Problem List: (1) Abdominal pain ICD Codes: R10.9 - Unspecified abdominal pain SNOMED: 74789317 (2) Acute gallstone pancreatitis ICD Codes: K85.10 - Biliary acute pancreatitis without necrosis or infection SNOMED: 784230362 Status: stable, not improved Assessment/Plan cont current rx ivf npo pain rx antiemetics Subjective ROS Limited/Unobtainable: No Constitutional: Reports: malaise, weakness HEENT: Reports: no symptoms Cardiovascular: Reports: no symptoms Respiratory: Reports: no symptoms Gastrointestinal/Abdominal: Reports: abdominal pain Genitourinary: Reports: no symptoms Neurologic/Psychiatric: Reports: no symptoms Endocrine: Reports: no symptoms Hematologic/Lymphatic: Reports: no symptoms Allergies: Coded Allergies: No Known Allergies (Unverified , 03/20/18) All Systems: reviewed and negative except above Subjective decreased abd pain. lipase stable c/o lower abd crampy pain. upper midepigastric pain better. overall feels better today Objective Last 24 Hour Vital Signs Date Time Temp Pulse Resp B/P (MAP) Pulse Ox O2 Delivery O2 Flow Rate FiO2 03/26/18 09:00 Room Air 03/26/18 08:00 97.2 77 18 133/80 (97) 97 03/26/18 00:00 97.8 81 18 128/84 (99) 95 03/25/18 21:00 Room Air 03/25/18 20:00 99.7 85 18 143/82 (102) 95 03/25/18 16:00 98.6 76 18 138/94 (109) 98 76 Intake and Output 03/25/18 03/26/18 18:59 06:59 Intake Total 650 ml 1110.0 ml Balance 650 ml 1110.0 ml IV Total 1110.0 ml Other 650 ml # Voids 4 4 Laboratory Tests 03/26/18 08:00: White Blood Count 10.3, Red Blood Count 5.09, Hemoglobin 15.1, Hematocrit 43.8, Mean Corpuscular Volume 86, Mean Corpuscular Hemoglobin 29.8, Mean Corpuscular Hemoglobin Concent 34.6, Red Cell Distribution Width 10.2L, Platelet Count 257, Mean Platelet Volume 7.6, Neutrophils (%) (Auto) 79.6H, Lymphocytes (%) (Auto) 10.2L, Monocytes (%) (Auto) 7.5, Eosinophils (%) (Auto) 2.2, Basophils (%) (Auto ) 0.6, Sodium Level 140, Potassium Level 3.7, Chloride Level 101, Carbon Dioxide Level 29, Anion Gap 10, Blood Urea Nitrogen 6L, Creatinine 1.0, Estimat Glomerular Filtration Rate > 60, Glucose Level 98, Calcium Level 9.6, Total Bilirubin 1.3H, Direct Bilirubin 0.7H, Aspartate Amino Transf (AST/SGOT) 40H, Alanine Aminotransferase (ALT/SGPT) 124H, Alkaline Phosphatase 100, Total Protein 8.3H, Albumin 3.4, Globulin 4.9, Albumin/Globulin Ratio 0.7L, Lipase 1287H Height (Feet): 6 Height (Inches): 0.00 Weight (Pounds): 195 Abdomen: soft, tender Sotero Melgar MD Mar 26, 2018 10:13
[2018-03-26 11:45] VITALS: BP 127/83
[2018-03-26] MEDS ORDERED: DiphenhydrAMINE 50mg/ml Inj IVP PRN (13:52)
[2018-03-26] MEDS ORDERED: Morphine Sulfate 2mg/ml Inj IVP PRN (14:00)
[2018-03-26] MEDS ORDERED: D5 1/2NS 1000ml IV ONE (15:46)
[2018-03-26 16:00] VITALS: BP 129/83
--- NOTE | 2018-03-26 16:38 | General Surgery Progress Note ---
General Surgery-Progress Note Subjective Additional Comments no acute events. Objective Last 24 Hour Vital Signs Date Time Temp Pulse Resp B/P (MAP) Pulse Ox O2 Delivery O2 Flow Rate FiO2 03/26/18 11:45 98.2 77 19 127/83 (98) 97 03/26/18 09:00 Room Air 03/26/18 08:00 97.2 77 18 133/80 (97) 97 03/26/18 00:00 97.8 81 18 128/84 (99) 95 03/25/18 21:00 Room Air 03/25/18 20:00 99.7 85 18 143/82 (102) 95 I&O Intake and Output 03/25/18 03/26/18 18:59 06:59 Intake Total 650 ml 1110.0 ml Balance 650 ml 1110.0 ml IV Total 1110.0 ml Other 650 ml # Voids 4 4 Drains: none Cardiovascular: RSR Respiratory: clear Abdomen: soft, distended, tenderness, present bowel sounds Extremities: no tenderness, no cyanosis Laboratory Tests Test 03/26/18 08:00 White Blood Count 10.3 K/UL (4.8-10.8) Red Blood Count 5.09 M/UL (4.70-6.10) Hemoglobin 15.1 G/DL (14.2-18.0) Hematocrit 43.8 % (42.0-52.0) Mean Corpuscular Volume 86 FL (80-99) Mean Corpuscular Hemoglobin 29.8 PG (27.0-31.0) Mean Corpuscular Hemoglobin Concent 34.6 G/DL (32.0-36.0) Red Cell Distribution Width 10.2 % (11.6-14.8) L Platelet Count 257 K/UL (150-450) Mean Platelet Volume 7.6 FL (6.5-10.1) Neutrophils (%) (Auto) 79.6 % (45.0-75.0) H Lymphocytes (%) (Auto) 10.2 % (20.0-45.0) L Monocytes (%) (Auto) 7.5 % (1.0-10.0) Eosinophils (%) (Auto) 2.2 % (0.0-3.0) Basophils (%) (Auto) 0.6 % (0.0-2.0) Sodium Level 140 MMOL/L (136-145) Potassium Level 3.7 MMOL/L (3.5-5.1) Chloride Level 101 MMOL/L (98-107) Carbon Dioxide Level 29 MMOL/L (21-32) Anion Gap 10 mmol/L (5-15) Blood Urea Nitrogen 6 mg/dL (7-18) L Creatinine 1.0 MG/DL (0.55-1.30) Estimat Glomerular Filtration Rate > 60 mL/min (>60) Glucose Level 98 MG/DL (74-106) Calcium Level 9.6 MG/DL (8.5-10.1) Total Bilirubin 1.3 MG/DL (0.2-1.0) H Direct Bilirubin 0.7 MG/DL (0.0-0.3) H Aspartate Amino Transf (AST/SGOT) 40 U/L (15-37) H Alanine Aminotransferase (ALT/SGPT) 124 U/L (12-78) H Alkaline Phosphatase 100 U/L (46-116) Total Protein 8.3 G/DL (6.4-8.2) H Albumin 3.4 G/DL (3.4-5.0) Globulin 4.9 g/dL Albumin/Globulin Ratio 0.7 (1.0-2.7) L Lipase 1287 U/L (73-393) H Plan Problems: (1) Acute gallstone pancreatitis Assessment & Plan: 32M gallstone pancreatitis low grade fevers leukocytosis -resolved significantly elevated LFT's/bili - trending down US with cholelithiasis MRI w/ No evidence of choledocholithiasis. Mild biliary ductal dilatation is noted. Acute pancreatitis with the enlarged appearance of the pancreas and peripancreatic/retroperitoneal fluid and inflammation. Gallstone with gallbladder wall thickening. Cholecystitis not excluded. Correlate clinically. likely passage of stone since onset. does have significant pancreatitis on MRI and exam with persistent tenderness labs noted. mild elevation in lipase NPO IV fluids trend labs CT A/P tomorrow rx as written will likely need cholecystectomy at some point thank you. will follow with recs. Hardik Zepeda Mar 26, 2018 16:38
[2018-03-26] MEDS ORDERED: Gastrograffin 30ml ORAL PRN (16:45)
[2018-03-26] MEDS ORDERED: Isovue-300 100ml vial INJ PRN (16:45)
[2018-03-26 20:00] VITALS: BP 144/87
[2018-03-26] MEDS: Morphine Sulfate 4mg/ml Inj (IV/IM USE ONLY) IVP PRN (20:41)
[2018-03-27] VITALS: BP 121/80
[2018-03-27] MEDS: Morphine Sulfate 4mg/ml Inj (IV/IM USE ONLY) IVP PRN ×2 (01:50→21:58)
[2018-03-27] MEDS: D5 1/2NS 1,000 ML IV SCH ×4 (05:41→20:30)
[2018-03-27 06:30] VITALS: BP 122/79
--- NOTE | 2018-03-27 08:22 | General Progress Note ---
Assessment/Plan Problem List: (1) Abdominal pain ICD Codes: R10.9 - Unspecified abdominal pain SNOMED: 87384269 (2) Acute gallstone pancreatitis ICD Codes: K85.10 - Biliary acute pancreatitis without necrosis or infection SNOMED: 846160313 Status: stable Assessment/Plan cont current rx ivf npo pain rx antiemetics mobilize ct Subjective ROS Limited/Unobtainable: No Constitutional: Reports: malaise, weakness HEENT: Reports: no symptoms Cardiovascular: Reports: no symptoms Respiratory: Reports: no symptoms Gastrointestinal/Abdominal: Reports: abdominal pain Genitourinary: Reports: no symptoms Neurologic/Psychiatric: Reports: no symptoms Endocrine: Reports: no symptoms Hematologic/Lymphatic: Reports: no symptoms Allergies: Coded Allergies: No Known Allergies (Unverified , 03/20/18) All Systems: reviewed and negative except above Subjective decreased abd pain. lipase pending. c/o lower abd crampy pain. upper midepigastric pain better. overall feels better today. took MS x 2 last night Objective Last 24 Hour Vital Signs Date Time Temp Pulse Resp B/P (MAP) Pulse Ox O2 Delivery O2 Flow Rate FiO2 03/27/18 06:30 98.2 85 18 122/79 (93) 98 03/27/18 00:00 98.6 78 18 121/80 (94) 98 03/26/18 21:00 Room Air 03/26/18 20:00 98.9 78 17 144/87 (106) 96 03/26/18 16:00 99.0 87 18 129/83 (98) 99 03/26/18 11:45 98.2 77 19 127/83 (98) 97 03/26/18 09:00 Room Air Intake and Output 03/26/18 03/27/18 19:00 07:00 Intake Total 1200 ml 1375 ml Balance 1200 ml 1375 ml IV Total 1200 ml 1375 ml # Voids 2 Height (Feet): 6 Height (Inches): 0.00 Weight (Pounds): 195 Sotero Melgar MD Mar 27, 2018 08:22
[2018-03-27 09:00] VITALS: BP 138/79
[2018-03-27 09:14] LABS: BASOPHILS % (AUTO) 0.4 % (0.0-2.0); EOSINOPHILS % (AUTO) 2.2 % (0.0-3.0); HEMATOCRIT 45.5 % (42.0-52.0); HEMOGLOBIN 15.7 G/DL (14.2-18.0); LYMPHOCYTES % (AUTO) 15.3 % (20.0-45.0); MEAN CORPUSCULAR VOLUME 86 FL (80-99); MONOCYTES % (AUTO) 7.7 % (1.0-10.0); NEUTROPHILS % (AUTO) 74.4 % (45.0-75.0); PLATELET COUNT 294 K/UL (150-450); RED BLOOD COUNT 5.27 M/UL (4.70-6.10); RED CELL DISTRIBUTION WIDTH 10.5 % (11.6-14.8); WHITE BLOOD COUNT 11.2 K/UL (4.8-10.8)
[2018-03-27 09:21] LABS: ALANINE AMINOTRANSFERASE 107 U/L (12-78); ALBUMIN 3.4 G/DL (3.4-5.0); ALBUMIN/GLOBULIN RATIO 0.7 (1.0-2.7); ALKALINE PHOSPHATASE 97 U/L (46-116); ANION GAP 10 mmol/L (5-15); ASPARTATE AMINO TRANSFERASE 37 U/L (15-37); BILIRUBIN,DIRECT 0.5 MG/DL (0.0-0.3); BILIRUBIN,TOTAL 1.2 MG/DL (0.2-1.0); BLOOD UREA NITROGEN 7 mg/dL (7-18); CALCIUM 9.9 MG/DL (8.5-10.1); CARBON DIOXIDE 28 MMOL/L (21-32); CHLORIDE 102 MMOL/L (98-107); POTASSIUM 3.7 MMOL/L (3.5-5.1); SODIUM 140 MMOL/L (136-145)
[2018-03-27] MEDS: Pantoprazole Inj IVP SCH (09:34)
[2018-03-27] MEDS: Heparin 5000 units/ml inj SUBQ SCH ×2 (09:34→20:23)
--- NOTE | 2018-03-27 10:52 | GI Progress Note ---
Assessment/Plan Problems: (1) Abdominal pain ICD Codes: R10.9 - Unspecified abdominal pain SNOMED: 85141849 (2) Acute gallstone pancreatitis ICD Codes: K85.10 - Biliary acute pancreatitis without necrosis or infection SNOMED: 608449908 Status: stable Status Narrative Discussed with Dr. David. Assessment/Plan MRCP resulted >> no gallstones noted, most likely have passed LFTs elevated, downtrending defer ERCP at this time okay for DC per GI standpoint if tolerated diet fu surgical recommendations for possible brandon pain mgmt d/w POC with patient family fu labs The patient was seen and examined at bedside and all new and available data was reviewed in the patients chart. I agree with the above findings, impression and plan. (Patient seen earlier today. Signature stamp does not reflect patient encounter time.). - Mike David MD Subjective Subjective abdominal pain improved Objective Last 24 Hour Vital Signs Date Time Temp Pulse Resp B/P (MAP) Pulse Ox O2 Delivery O2 Flow Rate FiO2 03/27/18 09:00 98.6 82 20 138/79 (98) 98 03/27/18 06:30 98.2 85 18 122/79 (93) 98 03/27/18 00:00 98.6 78 18 121/80 (94) 98 03/26/18 21:00 Room Air 03/26/18 20:00 98.9 78 17 144/87 (106) 96 03/26/18 16:00 99.0 87 18 129/83 (98) 99 03/26/18 11:45 98.2 77 19 127/83 (98) 97 Intake and Output 03/26/18 03/27/18 19:00 07:00 Intake Total 1200 ml 1375 ml Balance 1200 ml 1375 ml IV Total 1200 ml 1375 ml # Voids 2 Laboratory Tests Test 03/27/18 05:57 White Blood Count 11.2 K/UL (4.8-10.8) H Red Blood Count 5.27 M/UL (4.70-6.10) Hemoglobin 15.7 G/DL (14.2-18.0) Hematocrit 45.5 % (42.0-52.0) Mean Corpuscular Volume 86 FL (80-99) Mean Corpuscular Hemoglobin 29.9 PG (27.0-31.0) Mean Corpuscular Hemoglobin Concent 34.5 G/DL (32.0-36.0) Red Cell Distribution Width 10.5 % (11.6-14.8) L Platelet Count 294 K/UL (150-450) Mean Platelet Volume 7.2 FL (6.5-10.1) Neutrophils (%) (Auto) 74.4 % (45.0-75.0) Lymphocytes (%) (Auto) 15.3 % (20.0-45.0) L Monocytes (%) (Auto) 7.7 % (1.0-10.0) Eosinophils (%) (Auto) 2.2 % (0.0-3.0) Basophils (%) (Auto) 0.4 % (0.0-2.0) Erythrocyte Sedimentation Rate 27 MM/HR (0-15) H Sodium Level 140 MMOL/L (136-145) Potassium Level 3.7 MMOL/L (3.5-5.1) Chloride Level 102 MMOL/L (98-107) Carbon Dioxide Level 28 MMOL/L (21-32) Anion Gap 10 mmol/L (5-15) Blood Urea Nitrogen 7 mg/dL (7-18) Creatinine 1.0 MG/DL (0.55-1.30) Estimat Glomerular Filtration Rate > 60 mL/min (>60) Glucose Level 78 MG/DL (74-106) Calcium Level 9.9 MG/DL (8.5-10.1) Total Bilirubin 1.2 MG/DL (0.2-1.0) H Direct Bilirubin 0.5 MG/DL (0.0-0.3) H Aspartate Amino Transf (AST/SGOT) 37 U/L (15-37) Alanine Aminotransferase (ALT/SGPT) 107 U/L (12-78) H Alkaline Phosphatase 97 U/L (46-116) C-Reactive Protein, Quantitative 12.2 mg/dL (0.00-0.90) H Total Protein 8.4 G/DL (6.4-8.2) H Albumin 3.4 G/DL (3.4-5.0) Globulin 5.0 g/dL Albumin/Globulin Ratio 0.7 (1.0-2.7) L Amylase Level 153 U/L (25-115) H Lipase 1058 U/L (73-393) H Height (Feet): 6 Height (Inches): 0.00 Weight (Pounds): 195 General Appearance: WD/WN, no apparent distress, alert Cardiovascular: normal rate Respiratory/Chest: normal breath sounds, no respiratory distress Abdominal Exam: normal bowel sounds, non tender, soft Extremities: normal range of motion, non-tender Saran Bronson NP Mar 27, 2018 10:52
[2018-03-27] MEDS ORDERED: D5 1/2NS 1000ml IV ONE ×2 (11:01)
[2018-03-27 12:00] VITALS: BP 126/80
--- NOTE | 2018-03-27 12:42 | Diagnostic Imaging Report ---
Clinical Indication: Abdominal pain Technique: Patient ingested oral contrast IV administration nonionic contrast. Multiphasic spiral acquisitions obtained through the abdomen and pelvis. Multiplanar reconstructions were generated. Total dose length product 1407.98 mGycm. CTDIvol(s) 14.4,15.28 mGy. Dose reduction achieved using automated exposure control Comparison: MRI abdomen dated 03/21/2018, ultrasound abdomen dated 03/20/2018 Findings: There is mild enlargement of the pancreas. The pancreas enhances normally. There is infiltration of the peripancreatic fat, extending slightly into the lesser sac, slightly into the left upper quadrant, and to some extent extending along the mesenteric root. No discrete fluid collections. No gas collections. No focal pancreatic mass. There is a small amount of fluid surrounding the spleen and liver, and a larger amount of free fluid in the pelvis. The gallbladder is nondistended, contains multiple calculi. Prominent lymph nodes are seen surrounding the pancreas and within the mesenteric root. Some of these lymph nodes are somewhat low in attenuation. The liver itself is unremarkable. The spleen is enlarged, measuring 14 cm long axis dimension. The adrenals are unremarkable. The kidneys demonstrate bilateral subcentimeter low-attenuation lesions which are too small to characterize. At least one of these on either side is very low in attenuation, may represent small angiomyolipomas. No renal or ureteral calculi, hydronephrosis, or hydroureter demonstrated. The bladder is unremarkable. The prostate and seminal vesicles are unremarkable. No pelvic mass or adenopathy. Normal appendix. Contrast is seen throughout the entirety of the small bowel and well into the colon. No small bowel distention or small bowel wall thickening. No evidence of diverticulosis or diverticulitis. No free intraperitoneal gas. There is a tiny fat-containing umbilical hernia There are bilateral pleural effusions. These are small, slightly larger on the left than on the right. Compressive atelectatic changes of both lower lobes are demonstrated. The bones are unremarkable except for small bone islands within the right femoral neck and left acetabulum.. Impression: Findings compatible with uncomplicated nonnecrotizing acute pancreatitis, with peripancreatic phlegmon as described Peripancreatic lymphadenopathy. Presumably reactive secondary to the above. However, some of the nodes are low in attenuation, raising possibility of an infectious process Splenomegaly Trace free intraperitoneal fluid, presumably related to the pancreatitis Bilateral pleural effusions. Bilateral compressive parenchymal atelectatic changes Subcentimeter low-attenuation lesions. Some of these may represent tiny angiomyolipomas. The remainder probably represent benign simple cortical cysts. No further follow-up necessary The CT scanner at [facility] is accredited by the [employer] and the scans are performed using protocols designed to limit radiation exposure to as low as reasonably achievable to attain images of sufficient resolution adequate for diagnostic evaluation.
--- NOTE | 2018-03-27 12:53 | General Surgery Progress Note ---
General Surgery-Progress Note Subjective Symptoms: improved Additional Comments pain less. no n/v/f/c. Objective Last 24 Hour Vital Signs Date Time Temp Pulse Resp B/P (MAP) Pulse Ox O2 Delivery O2 Flow Rate FiO2 03/27/18 09:00 98.6 82 20 138/79 (98) 98 03/27/18 06:30 98.2 85 18 122/79 (93) 98 03/27/18 00:00 98.6 78 18 121/80 (94) 98 03/26/18 21:00 Room Air 03/26/18 20:00 98.9 78 17 144/87 (106) 96 03/26/18 16:00 99.0 87 18 129/83 (98) 99 I&O Intake and Output 03/26/18 03/27/18 19:00 07:00 Intake Total 1200 ml 1375 ml Balance 1200 ml 1375 ml IV Total 1200 ml 1375 ml # Voids 2 Drains: none Cardiovascular: RSR Respiratory: clear Abdomen: soft, flat, non-tender, present bowel sounds Extremities: no tenderness, no cyanosis Laboratory Tests Test 03/27/18 05:57 White Blood Count 11.2 K/UL (4.8-10.8) H Red Blood Count 5.27 M/UL (4.70-6.10) Hemoglobin 15.7 G/DL (14.2-18.0) Hematocrit 45.5 % (42.0-52.0) Mean Corpuscular Volume 86 FL (80-99) Mean Corpuscular Hemoglobin 29.9 PG (27.0-31.0) Mean Corpuscular Hemoglobin Concent 34.5 G/DL (32.0-36.0) Red Cell Distribution Width 10.5 % (11.6-14.8) L Platelet Count 294 K/UL (150-450) Mean Platelet Volume 7.2 FL (6.5-10.1) Neutrophils (%) (Auto) 74.4 % (45.0-75.0) Lymphocytes (%) (Auto) 15.3 % (20.0-45.0) L Monocytes (%) (Auto) 7.7 % (1.0-10.0) Eosinophils (%) (Auto) 2.2 % (0.0-3.0) Basophils (%) (Auto) 0.4 % (0.0-2.0) Erythrocyte Sedimentation Rate 27 MM/HR (0-15) H Sodium Level 140 MMOL/L (136-145) Potassium Level 3.7 MMOL/L (3.5-5.1) Chloride Level 102 MMOL/L (98-107) Carbon Dioxide Level 28 MMOL/L (21-32) Anion Gap 10 mmol/L (5-15) Blood Urea Nitrogen 7 mg/dL (7-18) Creatinine 1.0 MG/DL (0.55-1.30) Estimat Glomerular Filtration Rate > 60 mL/min (>60) Glucose Level 78 MG/DL (74-106) Calcium Level 9.9 MG/DL (8.5-10.1) Total Bilirubin 1.2 MG/DL (0.2-1.0) H Direct Bilirubin 0.5 MG/DL (0.0-0.3) H Aspartate Amino Transf (AST/SGOT) 37 U/L (15-37) Alanine Aminotransferase (ALT/SGPT) 107 U/L (12-78) H Alkaline Phosphatase 97 U/L (46-116) C-Reactive Protein, Quantitative 12.2 mg/dL (0.00-0.90) H Total Protein 8.4 G/DL (6.4-8.2) H Albumin 3.4 G/DL (3.4-5.0) Globulin 5.0 g/dL Albumin/Globulin Ratio 0.7 (1.0-2.7) L Amylase Level 153 U/L (25-115) H Lipase 1058 U/L (73-393) H Plan Problems: (1) Acute gallstone pancreatitis Assessment & Plan: 32M gallstone pancreatitis low grade fevers leukocytosis -resolved significantly elevated LFT's/bili - trending down US with cholelithiasis MRI w/ No evidence of choledocholithiasis. Mild biliary ductal dilatation is noted. Acute pancreatitis with the enlarged appearance of the pancreas and peripancreatic/retroperitoneal fluid and inflammation. Gallstone with gallbladder wall thickening. Cholecystitis not excluded. Correlate clinically. likely passage of stone since onset. does have significant pancreatitis on MRI and exam with persistent tenderness labs noted. mild elevation in lipase labs better CT noted clear liquids IV fluids trend labs rx as written will likely need cholecystectomy at some point thank you. will follow with recs. Hardik Zepeda Mar 27, 2018 12:53
[2018-03-27 16:00] VITALS: BP 137/76
[2018-03-27 20:00] VITALS: BP 131/76
[2018-03-28] VITALS: BP 124/73
[2018-03-28] MEDS: Hydromorphone 0.5mg/0.5ml inj IVP PRN ×2 (01:20→23:56)
[2018-03-28] MEDS: D5 1/2NS 1,000 ML IV SCH ×2 (06:31→23:13)
[2018-03-28 07:09] LABS: BASOPHILS % (AUTO) 0.7 % (0.0-2.0); EOSINOPHILS % (AUTO) 1.9 % (0.0-3.0); HEMATOCRIT 42.2 % (42.0-52.0); HEMOGLOBIN 14.8 G/DL (14.2-18.0); LYMPHOCYTES % (AUTO) 12.6 % (20.0-45.0); MEAN CORPUSCULAR VOLUME 86 FL (80-99); MONOCYTES % (AUTO) 8.5 % (1.0-10.0); NEUTROPHILS % (AUTO) 76.4 % (45.0-75.0); PLATELET COUNT 285 K/UL (150-450); RED BLOOD COUNT 4.91 M/UL (4.70-6.10); RED CELL DISTRIBUTION WIDTH 10.1 % (11.6-14.8); WHITE BLOOD COUNT 11.3 K/UL (4.8-10.8)
[2018-03-28 07:51] LABS: ALANINE AMINOTRANSFERASE 84 U/L (12-78); ALBUMIN 3.1 G/DL (3.4-5.0); ALBUMIN/GLOBULIN RATIO 0.7 (1.0-2.7); ALKALINE PHOSPHATASE 91 U/L (46-116); AMYLASE 144 U/L (25-115); ANION GAP 12 mmol/L (5-15); ASPARTATE AMINO TRANSFERASE 31 U/L (15-37); BLOOD UREA NITROGEN 7 mg/dL (7-18); CALCIUM 9.4 MG/DL (8.5-10.1); CARBON DIOXIDE 26 MMOL/L (21-32); CHLORIDE 103 MMOL/L (98-107); CREATININE 0.9 MG/DL (0.55-1.30); POTASSIUM 3.4 MMOL/L (3.5-5.1); SODIUM 140 MMOL/L (136-145)
[2018-03-28 08:00] VITALS: BP 119/73
--- NOTE | 2018-03-28 08:37 | General Progress Note ---
Assessment/Plan Problem List: (1) Abdominal pain ICD Codes: R10.9 - Unspecified abdominal pain SNOMED: 78853106 (2) Acute gallstone pancreatitis ICD Codes: K85.10 - Biliary acute pancreatitis without necrosis or infection SNOMED: 494039518 Status: stable, progressing Assessment/Plan cont current rx ivf clears pain rx antiemetics mobilize monitor lipase level replace k Subjective ROS Limited/Unobtainable: No Constitutional: Reports: malaise, weakness HEENT: Reports: no symptoms Cardiovascular: Reports: no symptoms Respiratory: Reports: no symptoms Gastrointestinal/Abdominal: Reports: abdominal pain Genitourinary: Reports: no symptoms Neurologic/Psychiatric: Reports: no symptoms Endocrine: Reports: no symptoms Hematologic/Lymphatic: Reports: no symptoms Allergies: Coded Allergies: No Known Allergies (Unverified , 03/20/18) All Systems: reviewed and negative except above Subjective no events. c/o abd pain- "a little better." No feverws. CT noted. tolerating clear liquid diet. notes pain is worse at night. took morphine and dilaudid last night Objective Last 24 Hour Vital Signs Date Time Temp Pulse Resp B/P (MAP) Pulse Ox O2 Delivery O2 Flow Rate FiO2 03/28/18 00:00 98.5 74 18 124/73 (90) 98 03/27/18 21:00 Room Air 03/27/18 20:00 99.7 80 17 131/76 (94) 98 03/27/18 16:00 99.4 78 18 137/76 (96) 97 03/27/18 12:00 98.9 68 19 126/80 (95) 96 03/27/18 09:00 Room Air 03/27/18 09:00 98.6 82 20 138/79 (98) 98 Intake and Output 03/27/18 03/28/18 19:00 07:00 Intake Total 345 ml 397.5 ml Balance 345 ml 397.5 ml Intake Oral 220 ml 360 ml IV Total 125 ml 37.5 ml # Voids 3 2 # Bowel Movements 1 Laboratory Tests 03/28/18 06:00: White Blood Count 11.3H, Red Blood Count 4.91, Hemoglobin 14.8, Hematocrit 42.2 , Mean Corpuscular Volume 86, Mean Corpuscular Hemoglobin 30.2, Mean Corpuscular Hemoglobin Concent 35.1, Red Cell Distribution Width 10.1L, Platelet Count 285, Mean Platelet Volume 7.3, Neutrophils (%) (Auto) 76.4H, Lymphocytes (%) (Auto) 12.6L, Monocytes (%) (Auto) 8.5, Eosinophils (%) (Auto) 1.9, Basophils (%) (Auto) 0.7, Sodium Level 140, Potassium Level 3.4L, Chloride Level 103, Carbon Dioxide Level 26, Anion Gap 12, Blood Urea Nitrogen 7, Creatinine 0.9, Estimat Glomerular Filtration Rate > 60, Glucose Level 90, Calcium Level 9.4, Total Bilirubin 1.0, Aspartate Amino Transf (AST/SGOT) 31, Alanine Aminotransferase (ALT/SGPT) 84H, Alkaline Phosphatase 91, Total Protein 7.5, Albumin 3.1L, Globulin 4.4, Albumin/Globulin Ratio 0.7L, Amylase Level 144H , Lipase 1066H Height (Feet): 6 Height (Inches): 0.00 Weight (Pounds): 195 Sotero Melgar MD Mar 28, 2018 08:37
[2018-03-28] MEDS: Heparin 5000 units/ml inj SUBQ SCH ×2 (10:01→20:03)
[2018-03-28] MEDS: Pantoprazole Inj IVP SCH (10:02)
[2018-03-28 12:00] VITALS: BP 135/80
--- NOTE | 2018-03-28 12:27 | General Surgery Progress Note ---
General Surgery-Progress Note Subjective Symptoms: improved, tolerating diet, passing flatus, BM Additional Comments pain improving. Objective Last 24 Hour Vital Signs Date Time Temp Pulse Resp B/P (MAP) Pulse Ox O2 Delivery O2 Flow Rate FiO2 03/28/18 09:00 Room Air 03/28/18 08:00 97.8 82 20 119/73 (88) 97 03/28/18 00:00 98.5 74 18 124/73 (90) 98 03/27/18 21:00 Room Air 03/27/18 20:00 99.7 80 17 131/76 (94) 98 03/27/18 16:00 99.4 78 18 137/76 (96) 97 I&O Intake and Output 03/27/18 03/28/18 19:00 07:00 Intake Total 345 ml 397.5 ml Balance 345 ml 397.5 ml Intake Oral 220 ml 360 ml IV Total 125 ml 37.5 ml # Voids 3 2 # Bowel Movements 1 Drains: none Cardiovascular: RSR Respiratory: clear Abdomen: soft, distended, non-tender, present bowel sounds Extremities: no edema, no tenderness, no cyanosis Laboratory Tests Test 03/28/18 06:00 White Blood Count 11.3 K/UL (4.8-10.8) H Red Blood Count 4.91 M/UL (4.70-6.10) Hemoglobin 14.8 G/DL (14.2-18.0) Hematocrit 42.2 % (42.0-52.0) Mean Corpuscular Volume 86 FL (80-99) Mean Corpuscular Hemoglobin 30.2 PG (27.0-31.0) Mean Corpuscular Hemoglobin Concent 35.1 G/DL (32.0-36.0) Red Cell Distribution Width 10.1 % (11.6-14.8) L Platelet Count 285 K/UL (150-450) Mean Platelet Volume 7.3 FL (6.5-10.1) Neutrophils (%) (Auto) 76.4 % (45.0-75.0) H Lymphocytes (%) (Auto) 12.6 % (20.0-45.0) L Monocytes (%) (Auto) 8.5 % (1.0-10.0) Eosinophils (%) (Auto) 1.9 % (0.0-3.0) Basophils (%) (Auto) 0.7 % (0.0-2.0) Sodium Level 140 MMOL/L (136-145) Potassium Level 3.4 MMOL/L (3.5-5.1) L Chloride Level 103 MMOL/L (98-107) Carbon Dioxide Level 26 MMOL/L (21-32) Anion Gap 12 mmol/L (5-15) Blood Urea Nitrogen 7 mg/dL (7-18) Creatinine 0.9 MG/DL (0.55-1.30) Estimat Glomerular Filtration Rate > 60 mL/min (>60) Glucose Level 90 MG/DL (74-106) Calcium Level 9.4 MG/DL (8.5-10.1) Total Bilirubin 1.0 MG/DL (0.2-1.0) Aspartate Amino Transf (AST/SGOT) 31 U/L (15-37) Alanine Aminotransferase (ALT/SGPT) 84 U/L (12-78) H Alkaline Phosphatase 91 U/L (46-116) Total Protein 7.5 G/DL (6.4-8.2) Albumin 3.1 G/DL (3.4-5.0) L Globulin 4.4 g/dL Albumin/Globulin Ratio 0.7 (1.0-2.7) L Amylase Level 144 U/L (25-115) H Lipase 1066 U/L (73-393) H Plan Problems: (1) Acute gallstone pancreatitis Assessment & Plan: 32M gallstone pancreatitis low grade fevers leukocytosis -resolved significantly elevated LFT's/bili - trending down US with cholelithiasis MRI w/ No evidence of choledocholithiasis. Mild biliary ductal dilatation is noted. Acute pancreatitis with the enlarged appearance of the pancreas and peripancreatic/retroperitoneal fluid and inflammation. Gallstone with gallbladder wall thickening. Cholecystitis not excluded. Correlate clinically. likely passage of stone since onset. does have significant pancreatitis on MRI and exam with persistent tenderness labs noted. mild elevation in lipase labs better CT noted Full liquids IV fluids trend labs rx as written will likely need cholecystectomy at some point thank you. will follow with recs. Hardik Zepeda Mar 28, 2018 12:27
--- NOTE | 2018-03-28 15:07 | GI Progress Note ---
Assessment/Plan Problems: (1) Abdominal pain ICD Codes: R10.9 - Unspecified abdominal pain SNOMED: [id number] (2) Acute gallstone pancreatitis ICD Codes: K85.10 - Biliary acute pancreatitis without necrosis or infection SNOMED: 797662101 Status: stable, unchanged Status Narrative Discussed with Dr. David Assessment/Plan MRCP resulted >> no gallstones noted, most likely have passed LFTs elevated, downtrending Lipase remains elevated Add pancrelipase 3 times daily defer ERCP at this time okay for DC per GI standpoint if tolerated diet fu surgical recommendations for possible cholecystectomy pain mgmt d/w POC with patient family fu labs The patient was seen and examined at bedside and all new and available data was reviewed in the patients chart. I agree with the above findings, impression and plan. (Patient seen earlier today. Signature stamp does not reflect patient encounter time.). - Mike David MD Subjective Subjective abdominal pain improved On clear liquid diet Objective Last 24 Hour Vital Signs Date Time Temp Pulse Resp B/P (MAP) Pulse Ox O2 Delivery O2 Flow Rate FiO2 03/28/18 12:00 98.8 71 20 135/80 (98) 03/28/18 09:00 Room Air 03/28/18 08:00 97.8 82 20 119/73 (88) 97 03/28/18 00:00 98.5 74 18 124/73 (90) 98 03/27/18 21:00 Room Air 03/27/18 20:00 99.7 80 17 131/76 (94) 98 03/27/18 16:00 99.4 78 18 137/76 (96) 97 Intake and Output 03/27/18 03/28/18 19:00 07:00 Intake Total 345 ml 397.5 ml Balance 345 ml 397.5 ml Intake Oral 220 ml 360 ml IV Total 125 ml 37.5 ml # Voids 3 2 # Bowel Movements 1 Laboratory Tests Test 03/28/18 06:00 White Blood Count 11.3 K/UL (4.8-10.8) H Red Blood Count 4.91 M/UL (4.70-6.10) Hemoglobin 14.8 G/DL (14.2-18.0) Hematocrit 42.2 % (42.0-52.0) Mean Corpuscular Volume 86 FL (80-99) Mean Corpuscular Hemoglobin 30.2 PG (27.0-31.0) Mean Corpuscular Hemoglobin Concent 35.1 G/DL (32.0-36.0) Red Cell Distribution Width 10.1 % (11.6-14.8) L Platelet Count 285 K/UL (150-450) Mean Platelet Volume 7.3 FL (6.5-10.1) Neutrophils (%) (Auto) 76.4 % (45.0-75.0) H Lymphocytes (%) (Auto) 12.6 % (20.0-45.0) L Monocytes (%) (Auto) 8.5 % (1.0-10.0) Eosinophils (%) (Auto) 1.9 % (0.0-3.0) Basophils (%) (Auto) 0.7 % (0.0-2.0) Sodium Level 140 MMOL/L (136-145) Potassium Level 3.4 MMOL/L (3.5-5.1) L Chloride Level 103 MMOL/L (98-107) Carbon Dioxide Level 26 MMOL/L (21-32) Anion Gap 12 mmol/L (5-15) Blood Urea Nitrogen 7 mg/dL (7-18) Creatinine 0.9 MG/DL (0.55-1.30) Estimat Glomerular Filtration Rate > 60 mL/min (>60) Glucose Level 90 MG/DL (74-106) Calcium Level 9.4 MG/DL (8.5-10.1) Total Bilirubin 1.0 MG/DL (0.2-1.0) Aspartate Amino Transf (AST/SGOT) 31 U/L (15-37) Alanine Aminotransferase (ALT/SGPT) 84 U/L (12-78) H Alkaline Phosphatase 91 U/L (46-116) Total Protein 7.5 G/DL (6.4-8.2) Albumin 3.1 G/DL (3.4-5.0) L Globulin 4.4 g/dL Albumin/Globulin Ratio 0.7 (1.0-2.7) L Amylase Level 144 U/L (25-115) H Lipase 1066 U/L (73-393) H Height (Feet): 6 Height (Inches): 0.00 Weight (Pounds): 195 General Appearance: WD/WN, no apparent distress, alert Cardiovascular: normal rate Respiratory/Chest: normal breath sounds, no respiratory distress Abdominal Exam: normal bowel sounds, non tender, soft Extremities: normal range of motion, non-tender Saran Bronson NP Mar 28, 2018 15:07
[2018-03-28 16:00] VITALS: BP 137/83
[2018-03-28] MEDS: Pancrease Cap ORAL SCH (18:08)
[2018-03-28 20:02] VITALS: BP 144/85
[2018-03-29 00:05] VITALS: BP 139/81
[2018-03-29 06:58] VITALS: BP 127/78
[2018-03-29 08:00] VITALS: BP 118/75
[2018-03-29] MEDS: Pantoprazole Inj IVP SCH (08:48)
[2018-03-29] MEDS: Pancrease Cap ORAL SCH ×3 (08:48→17:04)
[2018-03-29] MEDS: Heparin 5000 units/ml inj SUBQ SCH ×2 (08:49→21:26)
[2018-03-29 09:05] LABS: BASOPHILS % (AUTO) 0.7 % (0.0-2.0); EOSINOPHILS % (AUTO) 1.7 % (0.0-3.0); HEMATOCRIT 48.5 % (42.0-52.0); HEMOGLOBIN 16.6 G/DL (14.2-18.0); MEAN CORPUSCULAR VOLUME 89 FL (80-99); NEUTROPHILS % (AUTO) 78.6 % (45.0-75.0); PLATELET COUNT 354 K/UL (150-450); RED BLOOD COUNT 5.44 M/UL (4.70-6.10); RED CELL DISTRIBUTION WIDTH 10.4 % (11.6-14.8)
[2018-03-29 10:07] LABS: ALANINE AMINOTRANSFERASE 87 U/L (12-78); ALBUMIN 3.7 G/DL (3.4-5.0); ALBUMIN/GLOBULIN RATIO 0.7 (1.0-2.7); ALKALINE PHOSPHATASE 107 U/L (46-116); ANION GAP 11 mmol/L (5-15); ASPARTATE AMINO TRANSFERASE 32 U/L (15-37); BILIRUBIN,TOTAL 0.9 MG/DL (0.2-1.0); BLOOD UREA NITROGEN 6 mg/dL (7-18); CALCIUM 10.3 MG/DL (8.5-10.1); CARBON DIOXIDE 26 MMOL/L (21-32); CHLORIDE 101 MMOL/L (98-107); POTASSIUM 3.6 MMOL/L (3.5-5.1); SODIUM 138 MMOL/L (136-145)
--- NOTE | 2018-03-29 11:01 | GI Progress Note ---
Assessment/Plan Problems: (1) Abdominal pain ICD Codes: R10.9 - Unspecified abdominal pain SNOMED: 94631519 (2) Acute gallstone pancreatitis ICD Codes: K85.10 - Biliary acute pancreatitis without necrosis or infection SNOMED: 812063222 Status: stable Status Narrative Discussed with Dr. David Assessment/Plan MRCP resulted >> no gallstones noted, most likely have passed LFTs elevated, downtrending Lipase remains elevated Add pancrelipase 3 times daily defer ERCP at this time okay for DC per GI standpoint if tolerated diet fu surgical recommendations for possible cholecystectomy pain mgmt d/w POC with patient family fu labs Outpatient follow-up with primary The patient was seen and examined at bedside and all new and available data was reviewed in the patients chart. I agree with the above findings, impression and plan. (Patient seen earlier today. Signature stamp does not reflect patient encounter time.). - Mike David MD Subjective Subjective abdominal pain improved, but still present Tolerating full liquid diet States his abdominal pain is worse at night Wants to be discharged Objective Last 24 Hour Vital Signs Date Time Temp Pulse Resp B/P (MAP) Pulse Ox O2 Delivery O2 Flow Rate FiO2 03/29/18 08:00 98.2 91 20 118/75 (89) 96 03/29/18 06:58 99.0 81 19 127/78 (94) 99 03/29/18 00:05 99.0 79 19 139/81 (100) 99 03/28/18 21:00 Room Air 03/28/18 20:02 99.3 81 17 144/85 (104) 99 03/28/18 16:00 98.1 75 20 137/83 (101) 100 03/28/18 12:00 98.8 71 20 135/80 (98) Intake and Output 03/28/18 03/29/18 19:00 07:00 Intake Total 1572.5 ml 855 ml Balance 1572.5 ml 855 ml Intake Oral 935 ml 480 ml IV Total 637.5 ml 375 ml # Voids 6 3 Laboratory Tests Test 03/29/18 07:32 White Blood Count 11.0 K/UL (4.8-10.8) H Red Blood Count 5.44 M/UL (4.70-6.10) Hemoglobin 16.6 G/DL (14.2-18.0) Hematocrit 48.5 % (42.0-52.0) Mean Corpuscular Volume 89 FL (80-99) Mean Corpuscular Hemoglobin 30.5 PG (27.0-31.0) Mean Corpuscular Hemoglobin Concent 34.2 G/DL (32.0-36.0) Red Cell Distribution Width 10.4 % (11.6-14.8) L Platelet Count 354 K/UL (150-450) Mean Platelet Volume 7.6 FL (6.5-10.1) Neutrophils (%) (Auto) 78.6 % (45.0-75.0) H Lymphocytes (%) (Auto) 12.0 % (20.0-45.0) L Monocytes (%) (Auto) 7.0 % (1.0-10.0) Eosinophils (%) (Auto) 1.7 % (0.0-3.0) Basophils (%) (Auto) 0.7 % (0.0-2.0) Sodium Level 138 MMOL/L (136-145) Potassium Level 3.6 MMOL/L (3.5-5.1) Chloride Level 101 MMOL/L (98-107) Carbon Dioxide Level 26 MMOL/L (21-32) Anion Gap 11 mmol/L (5-15) Blood Urea Nitrogen 6 mg/dL (7-18) L Creatinine 1.0 MG/DL (0.55-1.30) Estimat Glomerular Filtration Rate > 60 mL/min (>60) Glucose Level 86 MG/DL (74-106) Calcium Level 10.3 MG/DL (8.5-10.1) H Total Bilirubin 0.9 MG/DL (0.2-1.0) Aspartate Amino Transf (AST/SGOT) 32 U/L (15-37) Alanine Aminotransferase (ALT/SGPT) 87 U/L (12-78) H Alkaline Phosphatase 107 U/L (46-116) Total Protein 9.1 G/DL (6.4-8.2) H Albumin 3.7 G/DL (3.4-5.0) Globulin 5.4 g/dL Albumin/Globulin Ratio 0.7 (1.0-2.7) L Amylase Level 164 U/L (25-115) H Lipase 1351 U/L (73-393) H Height (Feet): 6 Height (Inches): 0.00 Weight (Pounds): 195 General Appearance: WD/WN, no apparent distress, alert Cardiovascular: normal rate Respiratory/Chest: normal breath sounds, no respiratory distress Abdominal Exam: normal bowel sounds, non tender, soft Extremities: normal range of motion, non-tender Saran Bronson NP Mar 29, 2018 11:01
[2018-03-29 12:00] VITALS: BP 115/75
[2018-03-29 16:00] VITALS: BP 138/73
[2018-03-29] MEDS: Hydromorphone 0.5mg/0.5ml inj IVP PRN ×2 (19:28→22:35)
[2018-03-29 19:49] VITALS: BP 126/69
--- NOTE | 2018-03-29 22:41 | General Surgery Progress Note ---
General Surgery-Progress Note Subjective Additional Comments no acute events. doing well. 4/10 abdominal discomfort which has unchanged for many days. no n/v/f/c. in better spirits. feels better. +flatus and BM. tolerating diet. Objective Last 24 Hour Vital Signs Date Time Temp Pulse Resp B/P (MAP) Pulse Ox O2 Delivery O2 Flow Rate FiO2 03/29/18 21:00 Room Air 03/29/18 19:49 99.3 81 19 126/69 (88) 98 03/29/18 16:00 98.1 66 20 138/73 (94) 99 03/29/18 12:00 98.5 84 20 115/75 (88) 99 03/29/18 09:00 Room Air 03/29/18 08:00 98.2 91 20 118/75 (89) 96 03/29/18 06:58 99.0 81 19 127/78 (94) 99 03/29/18 00:05 99.0 79 19 139/81 (100) 99 I&O Intake and Output 03/28/18 03/29/18 18:59 06:59 Intake Total 1535.0 ml 930 ml Balance 1535.0 ml 930 ml Intake Oral 935 ml 480 ml IV Total 600.0 ml 450 ml # Voids 5 4 Drains: none Cardiovascular: RSR Respiratory: clear Abdomen: soft, flat, non-tender, present bowel sounds Extremities: no tenderness, no cyanosis Laboratory Tests Test 03/29/18 07:32 White Blood Count 11.0 K/UL (4.8-10.8) H Red Blood Count 5.44 M/UL (4.70-6.10) Hemoglobin 16.6 G/DL (14.2-18.0) Hematocrit 48.5 % (42.0-52.0) Mean Corpuscular Volume 89 FL (80-99) Mean Corpuscular Hemoglobin 30.5 PG (27.0-31.0) Mean Corpuscular Hemoglobin Concent 34.2 G/DL (32.0-36.0) Red Cell Distribution Width 10.4 % (11.6-14.8) L Platelet Count 354 K/UL (150-450) Mean Platelet Volume 7.6 FL (6.5-10.1) Neutrophils (%) (Auto) 78.6 % (45.0-75.0) H Lymphocytes (%) (Auto) 12.0 % (20.0-45.0) L Monocytes (%) (Auto) 7.0 % (1.0-10.0) Eosinophils (%) (Auto) 1.7 % (0.0-3.0) Basophils (%) (Auto) 0.7 % (0.0-2.0) Sodium Level 138 MMOL/L (136-145) Potassium Level 3.6 MMOL/L (3.5-5.1) Chloride Level 101 MMOL/L (98-107) Carbon Dioxide Level 26 MMOL/L (21-32) Anion Gap 11 mmol/L (5-15) Blood Urea Nitrogen 6 mg/dL (7-18) L Creatinine 1.0 MG/DL (0.55-1.30) Estimat Glomerular Filtration Rate > 60 mL/min (>60) Glucose Level 86 MG/DL (74-106) Calcium Level 10.3 MG/DL (8.5-10.1) H Total Bilirubin 0.9 MG/DL (0.2-1.0) Aspartate Amino Transf (AST/SGOT) 32 U/L (15-37) Alanine Aminotransferase (ALT/SGPT) 87 U/L (12-78) H Alkaline Phosphatase 107 U/L (46-116) Total Protein 9.1 G/DL (6.4-8.2) H Albumin 3.7 G/DL (3.4-5.0) Globulin 5.4 g/dL Albumin/Globulin Ratio 0.7 (1.0-2.7) L Amylase Level 164 U/L (25-115) H Lipase 1351 U/L (73-393) H Plan Problems: (1) Acute gallstone pancreatitis Assessment & Plan: 32M gallstone pancreatitis low grade fevers leukocytosis -resolved significantly elevated LFT's/bili - trending down US with cholelithiasis MRI w/ No evidence of choledocholithiasis. Mild biliary ductal dilatation is noted. Acute pancreatitis with the enlarged appearance of the pancreas and peripancreatic/retroperitoneal fluid and inflammation. Gallstone with gallbladder wall thickening. Cholecystitis not excluded. Correlate clinically. likely passage of stone since onset. does have significant pancreatitis on MRI and exam with persistent tenderness labs noted. mild elevation in lipase labs better CT noted has been tolerating diet and advance of diet without worsening symptoms. has a baseline 4/10 abd discomfort which has been present since admission and improving if anything. labs noted today. mild elevation in joce/lip not specific. no change in exam, vitals or clinical presentation. would not change currently course of care based on a number. he is clinically improving daily. it was initially drastic improvement and now plateaued slow improvement. will take time to recover but he is currently in the recovery phase after an acute pancreatitis episode. advance to soft low fat diet d/c IV fluids rx as written will transition to oral meds soon if clinical course continues to improve as he has been doing will plan for d/c once tolerating diet, pain controlled on oral meds, and improving. will likely need cholecystectomy at some point but given severity of this episode would recommend elective once resolved from this episode. thank you. will follow with recs. Hardik Zepeda Mar 29, 2018 22:40
[2018-03-30 00:31] VITALS: BP 131/77
[2018-03-30 04:00] VITALS: BP 120/75
[2018-03-30 06:37] LABS: BASOPHILS % (AUTO) 1.3 % (0.0-2.0); EOSINOPHILS % (AUTO) 2.6 % (0.0-3.0); HEMATOCRIT 44.8 % (42.0-52.0); HEMOGLOBIN 15.3 G/DL (14.2-18.0); LYMPHOCYTES % (AUTO) 16.3 % (20.0-45.0); MEAN CORPUSCULAR VOLUME 89 FL (80-99); MONOCYTES % (AUTO) 7.4 % (1.0-10.0); NEUTROPHILS % (AUTO) 72.5 % (45.0-75.0); PLATELET COUNT 326 K/UL (150-450); RED BLOOD COUNT 5.03 M/UL (4.70-6.10); RED CELL DISTRIBUTION WIDTH 10.2 % (11.6-14.8); WHITE BLOOD COUNT 8.8 K/UL (4.8-10.8)
[2018-03-30 06:42] LABS: ANION GAP 6 mmol/L (5-15); BLOOD UREA NITROGEN 5 mg/dL (7-18); CARBON DIOXIDE 28 MMOL/L (21-32); CHLORIDE 104 MMOL/L (98-107); CREATININE 1.1 MG/DL (0.55-1.30); POTASSIUM 4.2 MMOL/L (3.5-5.1); SODIUM 138 MMOL/L (136-145)
[2018-03-30 08:38] VITALS: BP 108/73
[2018-03-30] MEDS: Pancrease Cap ORAL SCH ×2 (08:45→12:50)
[2018-03-30] MEDS: Heparin 5000 units/ml inj SUBQ SCH (08:51)
[2018-03-30 12:00] VITALS: BP 115/76
--- NOTE | 2018-03-30 12:21 | GI Progress Note ---
Assessment/Plan Problems: (1) Abdominal pain ICD Codes: R10.9 - Unspecified abdominal pain SNOMED: 23006011 (2) Acute gallstone pancreatitis ICD Codes: K85.10 - Biliary acute pancreatitis without necrosis or infection SNOMED: 847313202 Status: stable Status Narrative Discussed with Dr. David Assessment/Plan MRCP resulted >> no gallstones noted, most likely have passed LFTs elevated, downtrending Lipase remains elevated Add pancrelipase 3 times daily defer ERCP at this time okay for DC per GI standpoint fu surgical recommendations for possible cholecystectomy pain mgmt d/w POC with patient family fu labs Outpatient follow-up with primary The patient was seen and examined at bedside and all new and available data was reviewed in the patients chart. I agree with the above findings, impression and plan. (Patient seen earlier today. Signature stamp does not reflect patient encounter time.). - Mike David MD Subjective Subjective abdominal pain improved, but still present Tolerating soft diet States his abdominal pain is worse at night Wants to be discharged Objective Last 24 Hour Vital Signs Date Time Temp Pulse Resp B/P (MAP) Pulse Ox O2 Delivery O2 Flow Rate FiO2 03/30/18 10:32 Room Air 03/30/18 08:38 98.7 85 18 108/73 (85) 98 03/30/18 04:00 98.7 77 18 120/75 (90) 99 03/30/18 00:31 99.0 74 18 131/77 (95) 98 03/29/18 21:00 Room Air 03/29/18 19:49 99.3 81 19 126/69 (88) 98 03/29/18 16:00 98.1 66 20 138/73 (94) 99 Intake and Output 03/29/18 03/30/18 19:00 07:00 Intake Total 840 ml 200 ml Balance 840 ml 200 ml Intake Oral 840 ml 200 ml # Voids 3 2 # Bowel Movements 1 Laboratory Tests Test 03/30/18 05:59 White Blood Count 8.8 K/UL (4.8-10.8) Red Blood Count 5.03 M/UL (4.70-6.10) Hemoglobin 15.3 G/DL (14.2-18.0) Hematocrit 44.8 % (42.0-52.0) Mean Corpuscular Volume 89 FL (80-99) Mean Corpuscular Hemoglobin 30.5 PG (27.0-31.0) Mean Corpuscular Hemoglobin Concent 34.2 G/DL (32.0-36.0) Red Cell Distribution Width 10.2 % (11.6-14.8) L Platelet Count 326 K/UL (150-450) Mean Platelet Volume 7.3 FL (6.5-10.1) Neutrophils (%) (Auto) 72.5 % (45.0-75.0) Lymphocytes (%) (Auto) 16.3 % (20.0-45.0) L Monocytes (%) (Auto) 7.4 % (1.0-10.0) Eosinophils (%) (Auto) 2.6 % (0.0-3.0) Basophils (%) (Auto) 1.3 % (0.0-2.0) Sodium Level 138 MMOL/L (136-145) Potassium Level 4.2 MMOL/L (3.5-5.1) Chloride Level 104 MMOL/L (98-107) Carbon Dioxide Level 28 MMOL/L (21-32) Anion Gap 6 mmol/L (5-15) Blood Urea Nitrogen 5 mg/dL (7-18) L Creatinine 1.1 MG/DL (0.55-1.30) Estimat Glomerular Filtration Rate > 60 mL/min (>60) Glucose Level 97 MG/DL (74-106) Calcium Level 10.0 MG/DL (8.5-10.1) Amylase Level 151 U/L (25-115) H Lipase 1261 U/L (73-393) H Height (Feet): 6 Height (Inches): 0.00 Weight (Pounds): 195 General Appearance: WD/WN, no apparent distress, alert Cardiovascular: normal rate Respiratory/Chest: normal breath sounds, no respiratory distress Abdominal Exam: normal bowel sounds, non tender, soft Extremities: normal range of motion, non-tender Saran Bronson NP Mar 30, 2018 12:21
[2018-03-30] MEDS ORDERED: Norco 5mg/325mg tab ORAL PRN (14:15)
[2018-03-30] MEDS ORDERED: NORCO 5-325 TA1 EACH ORAL (16:30)
--- NOTE | 2018-03-30 16:33 | General Surgery Progress Note ---
General Surgery-Progress Note Subjective Additional Comments no acute events. doing well. pain slowly improving. tolerating regular diet. no n/v/f/c. Objective Last 24 Hour Vital Signs Date Time Temp Pulse Resp B/P (MAP) Pulse Ox O2 Delivery O2 Flow Rate FiO2 03/30/18 12:00 98.2 66 18 115/76 (89) 99 03/30/18 10:32 Room Air 03/30/18 08:38 98.7 85 18 108/73 (85) 98 03/30/18 04:00 98.7 77 18 120/75 (90) 99 03/30/18 00:31 99.0 74 18 131/77 (95) 98 03/29/18 21:00 Room Air 03/29/18 19:49 99.3 81 19 126/69 (88) 98 I&O Intake and Output 03/29/18 03/30/18 19:00 07:00 Intake Total 840 ml 200 ml Balance 840 ml 200 ml Intake Oral 840 ml 200 ml # Voids 3 2 # Bowel Movements 1 Drains: none Cardiovascular: RSR Respiratory: clear Abdomen: soft, flat, non-tender, present bowel sounds Extremities: no tenderness, no cyanosis Laboratory Tests Test 03/30/18 05:59 White Blood Count 8.8 K/UL (4.8-10.8) Red Blood Count 5.03 M/UL (4.70-6.10) Hemoglobin 15.3 G/DL (14.2-18.0) Hematocrit 44.8 % (42.0-52.0) Mean Corpuscular Volume 89 FL (80-99) Mean Corpuscular Hemoglobin 30.5 PG (27.0-31.0) Mean Corpuscular Hemoglobin Concent 34.2 G/DL (32.0-36.0) Red Cell Distribution Width 10.2 % (11.6-14.8) L Platelet Count 326 K/UL (150-450) Mean Platelet Volume 7.3 FL (6.5-10.1) Neutrophils (%) (Auto) 72.5 % (45.0-75.0) Lymphocytes (%) (Auto) 16.3 % (20.0-45.0) L Monocytes (%) (Auto) 7.4 % (1.0-10.0) Eosinophils (%) (Auto) 2.6 % (0.0-3.0) Basophils (%) (Auto) 1.3 % (0.0-2.0) Sodium Level 138 MMOL/L (136-145) Potassium Level 4.2 MMOL/L (3.5-5.1) Chloride Level 104 MMOL/L (98-107) Carbon Dioxide Level 28 MMOL/L (21-32) Anion Gap 6 mmol/L (5-15) Blood Urea Nitrogen 5 mg/dL (7-18) L Creatinine 1.1 MG/DL (0.55-1.30) Estimat Glomerular Filtration Rate > 60 mL/min (>60) Glucose Level 97 MG/DL (74-106) Calcium Level 10.0 MG/DL (8.5-10.1) Amylase Level 151 U/L (25-115) H Lipase 1261 U/L (73-393) H Plan Problems: (1) Acute gallstone pancreatitis Assessment & Plan: 32M gallstone pancreatitis low grade fevers leukocytosis -resolved significantly elevated LFT's/bili - trending down US with cholelithiasis MRI w/ No evidence of choledocholithiasis. Mild biliary ductal dilatation is noted. Acute pancreatitis with the enlarged appearance of the pancreas and peripancreatic/retroperitoneal fluid and inflammation. Gallstone with gallbladder wall thickening. Cholecystitis not excluded. Correlate clinically. likely passage of stone since onset. does have significant pancreatitis on MRI and exam with persistent tenderness labs noted. mild elevation in lipase labs better CT noted has been tolerating diet and advance of diet without worsening symptoms. has a baseline 4/10 abd discomfort which has been present since admission and improving if anything. labs noted today. mild elevation in joce/lip not specific. no change in exam, vitals or clinical presentation. would not change currently course of care based on a number. he is clinically improving daily. it was initially drastic improvement and now plateaued slow improvement. will take time to recover but he is currently in the recovery phase after an acute pancreatitis episode. soft low fat diet rx as written - [place] 5/325 i tab po q4h prn pain d/c home today will likely need cholecystectomy at some point but given severity of this episode would recommend elective once resolved from this episode. f/u with pcp in 1-2 weeks for repeat labs (cbc, cmp, amylase, lipase) thank you. will follow with recs. Hardik Zepeda Mar 30, 2018 16:33
--- NOTE | 2018-03-31 13:47 | Discharge Summary ---
Discharge Summary Discharge Summary _ DATE OF ADMISSION: 03/21/2018 DATE OF DISCHARGE: 03/30/2018 DISCHARGED BY: Dr. Sotero Melgar CONSULTANTS: Dr. Hardik David BRIEF HOSPITAL COURSE: Patient is a 33-year-old male, with questionable history of gallstones presented to ED complaining of abdominal pain for 2-3 days prior to admission. Symptoms occur after a fatty meal. Symptoms were severe, he presented to emergency room. On evaluation, vital signs were stable. Blood work showed leukocytosis and elevated lipase and LFTs. Abdominal ultrasound showed limited evaluation with cholelithiasis demonstrated. Abdominal MRI showed acute pancreatitis, no gallstones noted, most likely have passed.. He was then admitted for pancreatitis secondary to gallstones. He was placed on n.p.o. He was given pain management. He was given IV hydration. He was started on Zosyn. He was given bowel rest. He had slow improvement. Diet was started slowly. He was able to tolerate diet without worsening symptoms. Clinically was improving. He was advised at some point will need elective cholecystectomy. He was cleared for discharge. To follow-up with PCP for repeat labs in 1-2 weeks. FINAL DIAGNOSES: Acute gallstone pancreatitis DISPOSITION: Patient was discharged home. DISCHARGE MEDICATIONS: Refer to Discharge Medication List. DISCHARGE INSTRUCTIONS: Follow-up in a week. I have been assigned to dictate discharge summary on this account, and I was not involved in the patient's management. Rhianna Kendrick NP Mar 31, 2018 13:47
== END 2018-03-30 17:15 | disposition home or self-care (01) | DRG 282 ==
LOC: EMR 22:36 → 3E 03-21 00:04 → EDBEDREQ 03-21 01:44
DX: K85.10 Biliary acute pancreatitis without necrosis or infection (principal)
CPT/HCPCS: 36415; 74177; 74181; 76700; 80048; 80053; 81003; 82150; 82248; 83690; 84484; 85007; 85025; 85610; 85651; 85730; 86140; 86850; 86900; 86901; 96361; 96365; 96375; 96376; 99285; J2405; J8499

== ENCOUNTER 2018-05-16 12:18 | Day surgery (SDC) | payer BC ==
[~2018-05-16] VITALS: Ht 182.9 cm; Wt 83.9 kg
[2018-05-16] VITALS (13 sets, daily range): BP systolic 106–137; BP diastolic 57–77
[~2018-05-16 12:18] MED LIST: NORCO 5-325 TA1 EACH ORAL; ceFAZolin sod 2 GM in NS 55 ML IVPB ONE
[2018-05-16] MEDS ORDERED: Zemuron 50mg/5ml Inj IV ONE (12:32)
[2018-05-16] MEDS ORDERED: Succinylcholine 20mg/ml 10ml vial ONE (12:32)
[2018-05-16] MEDS ORDERED: fentaNYL 100 mcg/2 mL IV ONE (12:42)
[2018-05-16] MEDS ORDERED: Midazolam 2mg/2ml Inj ONE (12:42)
[2018-05-16] MEDS ORDERED: Lidocaine 1% MPF 10mg/ml 5ml ONE (12:46)
[2018-05-16] MEDS ORDERED: Sodium Chloride 10ml vial INJ ONE (12:46)
[2018-05-16] MEDS ORDERED: Propofol 200mg/20ml IV ONE (12:46)
[2018-05-16] MEDS ORDERED: Ketorolac 30mg Inj ONE (12:46)
[2018-05-16] MEDS ORDERED: Iothalamate Meglumine 60% 30ML INJ ONE (12:53)
[2018-05-16] MEDS ORDERED: Bupivacaine w/Epi 0.5% 30ml Vial INJ ONE (12:53)
[2018-05-16] MEDS ORDERED: NS Irrig 1000ml ONE (13:00)
[2018-05-16] MEDS ORDERED: Neostigmine 1mg/ml 10ml Inj ONE (13:00)
[2018-05-16] MEDS ORDERED: Glycopyrrolate 0.2mg/ml 1ml Vial ONE (13:00)
[2018-05-16] MEDS ORDERED: LR 1000ml ONE (13:00)
[2018-05-16] MEDS ORDERED: Sterile Water Irrig 1000ml IRRIG ONE (13:00)
--- NOTE | 2018-05-16 13:05 | Anethesia Preoperative Eval ---
Anesthesia Pre-op PMH/ROS General Date of Evaluation: May 16, 2018 Time of Evaluation: 13:04 Anesthesiologist: Ilir ASA Score: ASA 2 Mallampati Score Class I : Soft palate, uvula, fauces, pillars visible Class II: Soft palate, uvula, fauces visible Class III: Soft palate, base of uvula visible Class IV: Only hard plate visible Mallampati Classification: Class II Surgeon: Kailee Diagnosis: Symptomatic cholelithyisis Surgical Procedure: Laparoscopic cholecystectomy Anesthesia History: none Family History: no anesthesia problems Allergies: Coded Allergies: No Known Allergies (Unverified , 05/16/18) Medications: see eMAR Patient NPO?: Yes Past Medical History Cardiovascular: Denies: HTN, CAD, DC, valve dz, arrhythmia, other Pulmonary: Denies: asthma, COPD, SU, other Gastrointestinal/Genitourinary: Reports: GERD, other; Denies: CRI, ESRD Neurologic/Psychiatric: Denies: dementia, CVA, depression/anxiety, TIA, other Endocrine: Denies: DM, hypothyroidism, steroids, other HEENT: Denies: cataract (L), cataract (R), glaucoma, ALTURAS (L), ALTURAS (R), other Hematology/Immune: Denies: anemia, DVT, bleeding disorder, other Musculoskeletal/Integumentary: Denies: OA, RA, DJD, DDD, edema, other PMH Narrative: as above PSxH Narrative: none Anesthesia Pre-op Phys. Exam Physician Exam Last Vital Signs Date Time Temp Pulse Resp B/P (MAP) Pulse Ox O2 Delivery O2 Flow Rate FiO2 05/16/18 12:42 Room Air 05/16/18 12:40 97.0 82 18 137/77 100 Constitutional: NAD Neurologic: CN 2-12 intact Cardiovascular: RRR, no M/R/G Respiratory: CTA Gastrointestinal: S/NT/ND Airway Exam Mallampati Score: Class II MO: full Neck: flexible ROM: full Teeth: intact Dentures: no upper, no lower Anesthesia Pre-op A/P Labs see chart Studies Pre-op Studies: EKG Risk Assessment & Plan Assessment: ASA 2 Plan: GA with ETT Status Change Before Surgery: No Pre-Antibiotics Drug: Ancef 2gr. Given Within 1 Hr of Incision: Yes Time Given: 13:28 Dani Hazel MD May 16, 2018 13:05
--- NOTE | 2018-05-16 13:20 | Pre-Procedure Note/Attestation ---
Pre-Procedure Note/Attestation Complete Prior to Procedure Planned Procedure: not applicable Procedure Narrative: laparoscopic cholecystectomy possible open Indications for Procedure Pre-Operative Diagnosis: symptomatic cholelithiasis; hx of gallstone pancreatitis Attestation I attest that I discussed the nature of the procedure; its benefits; risks and complications; and alternatives (and the risks and benefits of such alternatives ), prior to the procedure, with the patient (or the patient's legal contact center representative). I attest that, if there was a reasonable possibility of needing a blood transfusion, the patient (or the patient's legal contact center representative) was given the [facility] standardized written summary, pursuant to the [place] Blood Safety Act ([place] Health and Safety Code # 1645, as amended). I attest that I re-evaluated the patient just prior to the surgery and that there has been no change in the patient's H&P, except as documented below: Hardik Zepeda May 16, 2018 13:20
[2018-05-16] MEDS ORDERED: Morphine Sulfate 10mg/ml Inj ONE (13:50)
[2018-05-16] MEDS ORDERED: DiphenhydrAMINE 50mg/ml Inj IVP PRN (14:00)
[2018-05-16] MEDS ORDERED: Ketorolac 30mg Inj IV PRN (14:00)
[2018-05-16] MEDS ORDERED: Surgicel 4in x 8in TOPIC ONE ×2 (14:00→14:19)
[2018-05-16] MEDS ORDERED: LR 1000ml 1,000 ML IVLG SCH (14:00)
[2018-05-16] MEDS ORDERED: Metoclopramide 10mg/2ml Inj IVP PRN (14:00)
[2018-05-16] MEDS ORDERED: Hydromorphone 0.5mg/0.5ml inj IVP PRN (14:00)
[2018-05-16] MEDS ORDERED: Meperidine 50mg/ml Inj(FOR RIGORS ONLY) IV PRN (14:00)
[2018-05-16] MEDS ORDERED: Acetaminophen (Non formulary) 100 ML IV ONE (15:00)
--- NOTE | 2018-05-16 15:09 | Immediate Post-Op Evaluation ---
Immediate Post-Op Evalulation Immediate Post-Op Evalulation Procedure: Laparoscopic Cholecystectomy Date of Evaluation: May 16, 2018 Time of Evaluation: 15:07 IV Fluids: 1100 Blood Products: none Estimated Blood Loss: 50 Urinary Output: none Blood Pressure Systolic: 116 Blood Pressure Diastolic: 64 Pulse Rate: 74 Respiratory Rate: 20 O2 Sat by Pulse Oximetry: 99 Temperature (Fahrenheit): 97.6 Pain Score (1-10): 1 Nausea: No Vomiting: No Complications none Patient Status: awake, patent, extubated, none Hydration Status: adequate Dani aHzel MD May 16, 2018 15:09
--- NOTE | 2018-05-16 15:20 | Brief Operative Note ---
Immediate Post Operative Note Operative Note Pre-op Diagnosis: symptomatic cholelithiasis; hx of gallstone pancreatitis Procedure: lap brandon Post-op Diagnosis: same as pre-op Surgeon: ciro Anesthesiologist: geoff Anesthesia: general, local Specimen: yes Complications: none Condition: stable Fluids: see records Estimated Blood Loss: minimal Drains: none Implant(s) used?: No Hardik Zepeda May 16, 2018 15:20
[2018-05-16] MEDS ORDERED: HYDROmorphone 1mg/ml Carpuject SUBQ PRN (15:30)
[2018-05-16] MEDS ORDERED: D5 1/2NS 1,000 ML IV SCH (15:30)
[2018-05-16] MEDS ORDERED: Tylenol #3 tab (300mg/30mg) ORAL PRN (15:30)
[2018-05-16] MEDS ORDERED: Norco 5mg/325mg tab ORAL PRN (15:30)
--- NOTE | 2018-05-16 15:43 | 48 Hour Post Anesthesia Eval ---
Post Anesthesia Evaluation Procedure: Laparoscopic Cholecystectomy Date of Evaluation: May 16, 2018 Time of Evaluation: 15:42 Blood Pressure Systolic: 102 0: 56 Pulse Rate: 71 Respiratory Rate: 22 Temperature (Fahrenheit): 97.6 O2 Sat by Pulse Oximetry: 98 Airway: patent Nausea: No Vomiting: No Pain Intensity: 3 Hydration Status: adequate Cardiopulmonary Status: stable Mental Status/LOC: patient returned to baseline Follow-up Care/Observations: n/a Post-Anesthesia Complications: none Follow-up care needed: ready to discharge Dani Hazel MD May 16, 2018 15:43
--- NOTE | 2018-05-16 17:00 | Operative Note - Dictated ---
DATE OF OPERATION: 05/16/2018 PREOPERATIVE DIAGNOSES: 1. Symptomatic cholelithiasis. 2. History of gallstone pancreatitis. POSTOPERATIVE DIAGNOSES: 1. Symptomatic cholelithiasis. 2. History of gallstone pancreatitis. OPERATION PERFORMED: Laparoscopic cholecystectomy. ATTENDING SURGEON: Hardik Zepeda M.D. PUBLICATIONS WRITER: None. ANESTHESIOLOGIST: Dani Hazel M.D. ANESTHESIA: General BEHAVIOR ANALYST plus local. ESTIMATED BLOOD LOSS: Minimal. IV FLUIDS: Please see anesthesia records. COMPLICATIONS: None. DRAINS: None. ANTIBIOTICS: A 2 grams Ancef IV given one hour prior to cut time. WOUND CLASSIFICATION: Class III. COUNTS: Sponge and needle count correct x2. SPECIMENS: Gallbladder contained stones sent to pathology for review. INDICATIONS FOR PROCEDURE: This is a 33-year-old male who was prior admitted to [facility] with acute gallstone pancreatitis complicated by a prolonged course of inflammation which with proper medical management resolved. At that time, the patient was too acutely unwell for definitive cholecystectomy and therefore was allowed to cool down and once recovered, was seen in the office for evaluation and followed up thereafter with scheduling for laparoscopic cholecystectomy. Surgery was indicated and recommended. Risks, benefits, and alternatives were discussed the patient in detail, who expressed understanding and consented to surgery. Preoperative workup and clearance was performed by Dr. Seb White. OPERATIVE NOTE: The patient was taken to the operating room and placed on the operating table in supine position with bilateral arms out. All bony prominences well padded. SCDs were placed. Preoperative time-out was taken identifying the patient, procedure, operative staff, and surgical staff. No Pérez catheter was inserted given the patient voided just prior to entering the operating room. A 2 g Ancef IV were given one hour prior to cut time. General anesthesia was induced and the patient was intubated. The abdomen was clipped, prepped, and draped in standard surgical fashion. SCDs were placed prior to induction of general anesthesia. A local anesthetic was infiltrated in the proposed skin incisions and port sites throughout the procedure. An umbilical incision was made and carried down to the fascia, which was elevated and incised. Entry in the abdomen was obtained using ultrasound technique without complication. A 12 mm Cameron trocar was inserted and the abdomen was insufflated to 12 to 15 mmHg. The patient tolerated the insufflation well. Laparoscope was inserted. The abdomen was inspected. No injury from initial trocar placement noted. The right lobe of the liver and gallbladder were identified. The liver looked otherwise healthy. The left lobe of the liver was otherwise healthy, as well as the stomach and visualized portions of the intestines. There were no inguinal hernias or abnormalities within the pelvis noted. At this time secondary trocars were placed under direct visualization beginning with a 12 mm epigastric subxiphoid followed by two 5 mm right subcostal ports. No injury from secondary trocar placement noted. The patient was placed in reverse Trendelenburg with left side down. The dome of the gallbladder was grasped using most lateral port and retracted over the liver. The infundibulum was grasped using the midclavicular port and retracted towards the right lower quadrant. With gentle dissection, the critical view was obtained by identifying both the cystic artery and cystic duct. The cystic artery was doubly clipped and divided. Following this,only structure entering within the infundibulum of the gallbladder remaining was the cystic duct which was doubly clipped and divided. The gallbladder was then taken off of its liver attachments using electrocautery. Gallbladder was placed in endoscopic retrieval bag and removed from the abdomen using the subxiphoid port. The abdomen was inspected and hemostasis obtained using electrocautery. There was some mild oozing from the cystic artery which was reclipped successfully without complication. At this time, the abdomen was inspected so were the cystic duct and cystic artery remnants. Good hemostasis was noted. No leakage of bile. Herod were in appropriate positioning without any issues. At this time, a Surgicel was left in the liver bed. Following this, the secondary trocars removed under direct visualization. The abdomen allowed to desufflate. The umbilical trocar site was removed as well. All wounds were cleansed and the umbilical trocar site fascia as well as the epigastric port site fascia were reapproximated using [id number] #0 Vicryl suture. Remaining skin incisions were all reapproximated using 4-0 Monocryl subcuticular interrupted sutures. Skin glue and Steri-Strips were applied. The patient tolerated the procedure well, was extubated and taken to postanesthetic care unit in a stable condition. Hardik Zepeda M.D. DR: Jaky JOB#: [id number] CC: JOSE ANGEL
== END 2018-05-16 17:25 | disposition home or self-care (01) ==
LOC: SUR 12:18
DX: K80.10 Calculus of gallbladder with chronic cholecystitis without obstruction (principal); K21.9 Gastro-esophageal reflux disease without esophagitis
CPT/HCPCS: 47562; J0330; J0690; J1170; J1885; J2250; J2270; J2405; J2704; J2710; J2765; J3010; 94003; 94150